=== PATIENT | female | born 1950 | race Caucasian/White ===

== ENCOUNTER 2018-04-13 09:34 | Inpatient (IN) | payer MEDICARE ==
[2018-04-13] MEDS ORDERED: Magnesium 2 GM/50 ML BAG (IN WATER) ONE (10:20)
[2018-04-13] MEDS ORDERED: Norepinephrine 8 MG/0.9% NS 250 ML ONE (10:32)
--- NOTE | 2018-04-13 10:52 | RAD ---
SINGLE VIEW OF THE CHEST: Comparison: 04-13-18 History: Pneumonia. FINDINGS: Single view of the chest shows a normal sized cardiomediastinal silhouette. A left subclavian central venous catheter is seen with its tip in the superior vena cava. Airspace opacities project over the right upper lobe consistent with pneumonia. A calcified granuloma is seen in the left lung base. IMPRESSION: 1. Status post central line placement without evidence of complication. 2. Right upper lobe pneumonia. POS: H
[2018-04-13 10:57] LABS: #Monocytes 0.6 thou/uL (0.11-0.59); %Basophils 0.3 % (0.0-1.0); %Eosinophils 0.2 % (0.0-10.0); %Lymphocytes 6.8 % (21.0-51.0); %Monocytes 3.9 % (0.0-10.0); %Neutrophils 88.8 % (42.0-75.0); ALT (SGPT) 26 U/L (8-55); AST (SGOT) 62 U/L (5-34); Albumin 2.7 g/dL (3.4-4.8); Alkaline Phosphatase 184 U/L (40-150); Anion Gap 12 mmol/L (10-20); BUN (Urea Nitrogen) 9 mg/dL (9.8-20.1); Bilirubin, Total 0.7 mg/dL (0.2-1.2); CK (CPK) 25 U/L (29-168); Calc. Creatinine Clearance 0 mL/min (70-130); Calcium 8.2 mg/dL (7.8-10.44); Carbon Dioxide 26 mmol/L (23-31); Chloride 102 mmol/L (98-107); Estimated GFR-MDRD 71; Globulin 2.4 g/dL (2.4-3.5); Glucose 164 mg/dL (80-115); Hemoglobin 11.3 g/dL (12.0-16.0); Lipase Less than 4 U/L (8-78); Mean Corpuscular HGB CONC 30.3 g/dL (32.0-36.0); Mean Corpuscular Hemoglobin 27.1 pg (27.0-31.0); Mean Corpuscular Volume 89.4 fL (78.0-98.0); Mean Platelet Volume 7.5 fL (7.4-10.4); Platelet Count 320 thou/uL (130-400); Potassium 4.6 mmol/L (3.5-5.1); Protein, Total 5.1 g/dL (6.0-8.3); Red Blood Cell (RBC) Count 4.17 mill/uL (4.20-5.40); Sodium 135 mmol/L (136-145); White Blood Cell (WBC) Count 14.7 thou/uL (4.8-10.8)
[2018-04-13] MEDS ORDERED: Amiodarone 150 MG/3 ML VIAL ONE (11:31)
[2018-04-13 12:40] LABS: Bilirubin Negative (Negative); Blood, Urine Negative (Negative); Clarity CLEAR (Clear); Glucose, Urine (Dipstick) Negative (Negative); Leukocyte Negative (Negative); Nitrite Negative (Negative); Protein, Urine (Dipstick) Negative (Neg-Trace); Specific Gravity, Urine 1.042 (1.002-1.036); Urobilinogen 0.2 mg/dL (0.2-1.0)
--- NOTE | 2018-04-13 13:12 | HP ---
[facility] call admission for [facility]. The patient visiting from [place]. HISTORY OF PRESENT ILLNESS: The patient referred to the [facility] Hospitalist Service after being evaluated in the emergency room. The patient has multiple medical problems and multiple physicians including a internet sales consultant, primary care physician, pain management doctor, credit office manager, and orthopedic surgeon. Her current history is she woke today short of breath. She was not short of breath before. She has had some chronic cough, which is not changed. She has had no fevers, sweats, chills , or chest pain. PAST MEDICAL HISTORY: Her history is pertinent for chronic back pain and coronary artery disease. She had an MD in 2006. No intervention noted. She has had peripheral arterial disease with a stent to the right groin in 2006, hypertension, chronic obstructive pulmonary disease, and dyslipidemia. MEDICATIONS: Her current home medications; 1. Metoprolol ER 50 mg p.o. b.i.d. 2. Amlodipine 5 mg a day. 3. Propafenone 225 mg in the morning. 4. Aspirin 81 mg Wednesday, Wednesday, and Wednesday. 5. Plavix 75 mg a day. 6. Crestor 20 mg a day. 7. Zoloft 50 mg a day. 8. Orencia 125 mg IM weekly. 9. Prednisone 5 mg in the morning with flares of rheumatoid arthritis. 10. MS Contin 100 mg t.i.d. 11. Oxycodone 20 mg p.o. b.i.d. 12. Lunesta 3 mg h.s. 13. Torsemide 20 mg a day. 14. Potassium chloride 20 mEq a day. 15. Albuterol HFA 2 puffs q.4 hours p.r.n. ALLERGIES: PENICILLINS, CLINDAMYCIN, ANGIOEDEMA WITH LISINOPRIL, AND METHOTREXATE. PAST SURGICAL HISTORY: Right carpal tunnel release, bilateral total knee replacement, hysterectomy, cholecystectomy, appendectomy, and 3 back surgeries in the past; 1967, 1971, and 1986. FAMILY HISTORY: Mother of coronary artery disease. Father with diabetes. SOCIAL HISTORY: Partner, Anita Crawley, who is her surrogate decision maker. Full code status. Quit smoking 11 years ago. Occasional alcohol. REVIEW OF SYSTEMS: HEAD: No recent headaches, dizziness, or fainting. EYES: No double vision, blurred vision, or flashing light. EARS, NOSE, AND THROAT: No ear pain or drainage. No nasal bleeding. No trouble swallowing. CARDIAC: No chest pain, orthopnea, or paroxysmal nocturnal dyspnea. RESPIRATIONS: Please see present illness. GENITOURINARY: No hematuria, dysuria, or nocturia. GASTROINTESTINAL: No nausea, vomiting, diarrhea, constipation, or abdominal pain. MUSCULOSKELETAL: Positive swelling in her legs below the knees and chronic joint pains. NEUROLOGIC: No strokes, seizures, or focal weakness. PSYCHIATRIC: No acute anxiety or depression. SKIN: Easy bruising. No chronic rash. HEME/LYMPH: No tender or swollen lymph nodes in the axilla, inguinal, or cervical area. PHYSICAL EXAMINATION: VITAL SIGNS: Current vital signs; blood pressure 94/57, pulse 120, respirations 18 to 24, temperature 98.9, and pulse ox 94 on 2 L. GENERAL: Alert, oriented, and cooperative. HEENT: Examination of her head, eyes, ears, nose, and throat reveals pupils are equal and round with implants. Extraocular movements are intact. Sclerae are white. Tympanic membranes are clear. Nose clear. Oral mucous membranes are wet. She is edentulous. She has dentures. CHEST: Rales observed, complete right chest. Some scant rales on the left. Breath sounds are somewhat diminished. There is some expiratory wheezing. HEART: Irregularly irregular rhythm. First and second heart sounds were variable. No murmurs or gallops. ABDOMEN: Soft. Bowel sounds are normal. There is no hepatosplenomegaly. No mass. No rebound. EXTREMITIES: Reveal no cyanosis or clubbing. She has 2+ edema in her legs. Pulses; carotid, radial, and femoral pulses intact. Pedal pulses diminished. SKIN: Warm and dry with ecchymoses on her forearms. HEME/LYMPH: No tender or swollen lymph nodes in the axilla, inguinal, or cervical area. No petechial lesions noted. NEUROLOGIC: Cranial nerves 2 through 12 are intact. Deep tendon reflexes symmetric. LABORATORY DATA: Chest x-ray reveals a right-sided pneumonia, prominently right upper lobe, reviewed by me. CT of the chest also reveals some pneumonia. No pulmonary emboli. There are apparently intra-abdominal lesions with destruction of T12, hepatic duct dilatation. Further studies recommended. EKG, atrial fibrillation with rapid ventricular response and nonspecific ST-T abnormality. Her troponins 0.590 and BNP 287. Alkaline phosphatase 184, bilirubin 0.7, AST 62, ALT 26. Sodium 135, potassium 4.6, carbon dioxide 26, BUN 9, and creatinine 0.8. Current white cell count 14.7, hemoglobin 11.3, and platelet count 220,000 with a left shift on the white cell count. There is earlier CBC that shows 17.9 white count with a lactic acid of 4.9. HOSPITAL COURSE: The patient was seen and evaluated in an outlying emergency room. Because of her atrial fibrillation, she received 5 doses of IV Lopressor. She arrived here with a blood pressure in the 75/60 range. She was started on pressors. Because of her atrial fibrillation, she has been started on amiodarone by the emergency room physician. She has been given Levaquin and vancomycin in the emergency room. ASSESSMENT: 1. Hypotension, possibly iatrogenic induced. 2. Pneumonia, right upper lobe. 3. Lactic acidosis. 4. Atrial fibrillation with rapid ventricular response. 5. Coronary artery disease. 6. Peripheral vascular disease. 7. Hypertension. 8. Chronic obstructive pulmonary disease. 9. Dyslipidemia. 10. Rheumatoid arthritis. 11. NSTEMI 12. sepsis syndrome PLAN: The patient is currently being prepared to move to ICU. She will be on pressors, IV amiodarone, IV antibiotics, and nebs. I will consult Pulmonology and Cardiology acutely. Job ID: [id number] NATE
[2018-04-13] MEDS ORDERED: Norepinephrine 8 MG/0.9% NS 250 ML IVPB SCH (13:15)
[2018-04-13] MEDS ORDERED: Sodium Chloride 0.9% 1,000 ML IV SCH (13:15)
[2018-04-13] MEDS ORDERED: Ondansetron PF 4 MG/2 ML Vial IVP PRN (13:15)
[2018-04-13] MEDS ORDERED: Zolpidem Tartrate 5 MG TAB PO PRN (13:15)
[2018-04-13] MEDS: Sodium Chloride 0.9% 1,000 ML IV SCH (14:23)
--- NOTE | 2018-04-13 14:34 | PDOC.EVN ---
Event Note - Event Note Event Note: on chronic prednisone 5mg daily. willadd stress level slou-corteff
[2018-04-13 14:59] LABS: Critical Call Chem Troponin I RESULT DECREASING; Troponin I 0.413 ng/mL (< 0.028)
[2018-04-13] MEDS ORDERED: MORPHINE SULFATE 100 MG PO SCH (15:00)
[2018-04-13] MEDS: Hydrocortisone Sod Succ/PF 100 mg/2 ml Vial IVP SCH (15:54)
[2018-04-13 15:56] LABS: Bilirubin Negative (Negative); Blood, Urine Negative (Negative); Clarity CLEAR (Clear); Glucose, Urine (Dipstick) Negative (Negative); Leukocyte Negative (Negative); Nitrite Negative (Negative); Protein, Urine (Dipstick) Negative (Neg-Trace); Specific Gravity, Urine 1.026 (1.002-1.036); Urobilinogen 0.2 mg/dL (0.2-1.0)
[2018-04-13 15:58] LABS: Pathc Cast-AUWi Flag 0.14 (0-2.49)
[2018-04-13 16:05] LABS: CKMB 2.7 ng/mL (0-6.6)
[2018-04-13 16:11] LABS: RBC/HPF None Seen HPF (0-3)
[2018-04-13 16:12] LABS: Bacteria/HPF None Seen HPF (None Seen); Hyaline Casts/LPF NONE SEEN LPF (0-3 Hyaline); Squamous Epithelial 0-3 HPF (0-3); WBC/HPF None Seen HPF (0-3)
[2018-04-13 18:05] LABS: Troponin I 0.282 ng/mL (< 0.028)
--- NOTE | 2018-04-13 18:51 | CON ---
DATE OF CONSULTATION: 04/13/2018 CARDIOLOGY CONSULTATION REASON FOR CONSULTATION: Atrial fibrillation with a rapid rate, pneumonia, coronary artery disease, hypotension. HISTORY OF PRESENT ILLNESS: Ms. Self is a 67-year-old woman visiting from [place]. She presented to the emergency room with sudden onset of shortness of breath. She previously had a chronic cough. She was not aware of having any fever, sweats, or chills. No chest pain. PAST MEDICAL HISTORY: The patient said she had a myocardial infarction in the year 2006. She said she had a heart catheterization and no intervention was done. She said she had a stent placed in the "femoral artery" or actually she says "her groin a few weeks later." She said she did not have a stent placed in the heart artery, it was in the right groin. She does not recall having leg pain. She says she sees her claim trainee regularly. She is scheduled for a stress test soon. HOME MEDICATIONS: 1. Metoprolol 50 mg twice a day. 2. Amlodipine 5 mg daily. 3. Propafenone, she takes 225 mg a day. She said, one day, she had rapid heart rate and she was instructed to take this once a day following that. 4. Aspirin 81 mg Wednesday, Wednesday, and Wednesday. 5. Plavix 75 mg a day. 6. Crestor 20 mg a day. 7. Zoloft. 8. Prednisone 5 mg in the morning when she has rheumatoid arthritis. 9. MS Contin. 10. Torsemide. 11. Potassium. 12. Albuterol. ALLERGIES: PENICILLIN, CLINDAMYCIN, ANGIOEDEMA WITH LISINOPRIL, AND METHOTREXATE. PAST SURGICAL HISTORY: Carpal tunnel release, bilateral total knee replacement, hysterectomy, cholecystectomy, appendectomy, and three back surgeries. FAMILY HISTORY: Mother of coronary artery disease. SOCIAL HISTORY: Quit smoking 11 years ago. REVIEW OF SYSTEMS: CONSTITUTIONAL: Prior to the above listed, she was active. VISION: No changes. HEARING: No changes. PULMONARY: Shortness of breath, acute as mentioned above. GASTROINTESTINAL: No nausea, vomiting, or diarrhea. SKIN: No rashes. NEUROLOGIC: No unilateral weakness or numbness. PSYCHIATRIC: No unusual depression or anxiety. HEMATOLOGIC: No unusual bruising. GENITOURINARY: No burning with urination. MUSCULOSKELETAL: No unusual joint pains. PHYSICAL EXAMINATION: GENERAL: This is an elderly woman, resting comfortably. VITAL SIGNS: Her blood pressure is approximately 110 systolic now, pulse is variable anywhere between 110 to 115 up to 120 at times, looks like atrial fibrillation. EYES: Sclerae nonicteric. MOUTH: Mucous membranes moist. NECK: Supple. No lymphadenopathy. LUNGS: Clear. CARDIAC: Irregularly irregular. No murmur, rub, or gallop. ABDOMEN: Soft and nontender. EXTREMITIES: No clubbing or cyanosis. There is no edema. Peripheral pulses are diminished. SKIN: Warm and dry. PERTINENT LABORATORY: The EKG reveals sinus rhythm, looks like an old anterior infarct. No acute ST or T changes. Pertinent troponin 0.59. BNP 287. Sodium is 135, potassium 4.6, creatinine is 0.8. Hemoglobin is 11.3. Chest x-ray shows central line in place with a right upper lobe infiltrate. ASSESSMENT: 1. Atrial fibrillation with a rapid rate, probably recent onset. 2. Pneumonia. 3. Coronary artery disease with previous myocardial infarction. 4. Increased troponin, [id number] myocardial infarction, looks like demand ischemia. 5. Hypotension. PLAN: 1. She is on Levophed for blood pressure. She is on amiodarone for heart rate control. 2. Antibiotics being given. 3. She is on aspirin. 4. We will add enoxaparin. 5. Echocardiogram to be ordered. We will be glad to follow with you. Job ID: [id number]
[2018-04-13 19:03] LABS: CKMB 2.9 ng/mL (0-6.6)
[2018-04-13 20:26] LABS: Actual Bicarbonate (HCO3a) 17.2 mEq/L (22-28); Base Excess (BEa) -9.1 mEq/L (-2.0 to +3.0); CO2 Tension 38.6 mmHg (35.0-45.0); Calcium, Ionized 1.15 mmol/L (1.12-1.30); Carboxyhemoglobin (COHb) 1.2 gm% (0.0-3.0); Hemoglobin (Hb) 13.6 g/dL (12.0-16.0); O2 Tension (PaO2) 111.7 mmHg (> 80.0); pH, Arterial 7.27 (7.35-7.45)
[2018-04-13 20:27] LABS: Puncture Site RRADIAL
[2018-04-13] MEDS ORDERED: Sodium Bicarb 50 MEQ/50 ML Abboject 8.4% SYRINGE IVP SCH (20:45)
[2018-04-13] MEDS ORDERED: Sodium Bicarbonate 150 MEQ in Dextrose 5% in Water 1,000 ML IVP SCH (20:45)
[2018-04-13] MEDS ORDERED: Non-Formulary Item 1 EACH (Eszopiclone [Lunesta] 3 MG) PO SCH (21:00)
[2018-04-13] MEDS ORDERED: Zolpidem Tartrate 5 MG TAB PO SCH (21:00)
[2018-04-13] MEDS: Morphine 4 MG/ML VIAL SLOW IVP PRN (21:14)
[2018-04-13] MEDS: Enoxaparin Sodium 80 MG/0.8 ML SYRINGE SC SCH (21:55)
[2018-04-13] MEDS: guaiFENesin ER 600 MG TAB PO SCH (21:58)
[2018-04-13] MEDS: Morphine ER 30 MG TAB PO SCH (22:04)
[2018-04-13] MEDS: Amiodarone 450 MG, Admixture Fee 1 EACH in Dextrose 5% in Water 250 ML IVPB SCH (22:06)
--- NOTE | 2018-04-14 00:40 | CON ---
DATE OF CONSULTATION: 04/13/2018 HISTORY OF PRESENT ILLNESS: Ms. Self is a 67-year-old female, who does not live in this area. She tells me she has had 3 back operations in the past, for which she takes long-acting morphine. She has been on as much MS Contin as 100 mg 3 times a day. She actually has slightly slurred speech. She had rapid atrial fibrillation when presenting to the emergency department in [place] and received Lopressor and dropped her blood pressure. She actually has a CT pulmonary angiogram, which shows a fairly impressive alveolar infiltrate in her right lung consistent with a pneumonia. She is subsequently transferred here and is now in the ICU. She says she feels fine and has only been feeling poorly for a day. PAST MEDICAL HISTORY: Remarkable for, 1. Coronary artery disease with myocardial infarction 11 years ago. 2. Peripheral vascular disease with a right lower extremity stent 11 years ago. 3. History of hypertension. 4. Reported history of COPD, only on albuterol. 5. History of lipid disorder. 6. Reported history of rheumatoid arthritis. 7. History of carpal tunnel surgery on the right. 8. History of bilateral total knee replacements. 9. Status post hysterectomy. 10. History of cholecystectomy. 11. History of an appendectomy. FAMILY HISTORY: Positive for vascular disease and diabetes. SOCIAL HISTORY: She is a former smoker, rarely drinks. REVIEW OF SYSTEMS: Ten-point review of systems completed, is otherwise negative. PHYSICAL EXAMINATION: VITAL SIGNS: Blood pressure is 107/77, heart rate is 105, respiratory rate is 22, and oximetry is 93%. GENERAL: Surprisingly, she is in no distress. I expected some respiratory distress with a history of COPD in a fairly ominous looking chest CT, but she is actually totally comfortable. She did have a very slight slurring to her speech and a little latency response to questions. HEAD: Unremarkable. She has no lymphadenopathy. NECK: Unremarkable. LUNGS: Remarkable for crackles at the right base. HEART: Regular rhythm. Her rate has slowed down significantly. She does appear to be in atrial fibrillation. ABDOMEN: Soft and nontender. EXTREMITIES: Without clubbing, cyanosis or edema. LABORATORY DATA: White count 14.7, hemoglobin 11.3, and platelets 320. Electrolytes; sodium 135, potassium 4.6, chloride 102, bicarb 26, BUN 9, creatinine 0.8, alkaline phosphatase 184, AST 62, ALT is 26, and albumin is 2.7. Urinalysis is surprisingly unremarkable. She has no sediment, no proteinuria. IMPRESSION AND PLAN: 1. Pneumonia, community-acquired. 2. Significant opioid use. The dose was cut back to 60 mg t.i.d. and I have cut it further back to 60 mg b.i.d. for now. 3. We can always give her IV morphine for breakthrough pain. 4. Agreed with antimicrobial therapy. She will receive nebulized therapy. We will be happy to follow with the other physicians. This is a 70-minute consult, with greater than 50% of time was spent on the unit coordinating care. Job ID: [id number] MTDD
[2018-04-14] MEDS: Sodium Chloride 0.9% 1,000 ML IV SCH (03:11)
[2018-04-14] MEDS: Hydrocortisone Sod Succ/PF 100 mg/2 ml Vial IVP SCH ×2 (03:30→15:07)
[2018-04-14] MEDS: Morphine 4 MG/ML VIAL SLOW IVP PRN (04:10)
[2018-04-14 04:20] LABS: #Monocytes 0.7 thou/uL (0.11-0.59); %Eosinophils 0.1 % (0.0-10.0); %Lymphocytes 15.7 % (21.0-51.0); %Monocytes 5.4 % (0.0-10.0); %Neutrophils 78.8 % (42.0-75.0); Mean Corpuscular HGB CONC 31.8 g/dL (32.0-36.0); Mean Corpuscular Hemoglobin 28.2 pg (27.0-31.0); Mean Corpuscular Volume 88.7 fL (78.0-98.0); Mean Platelet Volume 7.6 fL (7.4-10.4); Platelet Count 339 thou/uL (130-400); RBC Distribution Width 16.1 % (11.5-14.5); Red Blood Cell (RBC) Count 4.26 mill/uL (4.20-5.40); White Blood Cell (WBC) Count 12.7 thou/uL (4.8-10.8)
[2018-04-14 04:43] LABS: Anion Gap 11 mmol/L (10-20); BUN (Urea Nitrogen) 9 mg/dL (9.8-20.1); Calc. Creatinine Clearance 97 mL/min (70-130); Calcium 8.8 mg/dL (7.8-10.44); Carbon Dioxide 32 mmol/L (23-31); Chloride 103 mmol/L (98-107); Estimated GFR-MDRD 87; Glucose 148 mg/dL (80-115); Potassium 3.5 mmol/L (3.5-5.1); Sodium 142 mmol/L (136-145)
[2018-04-14 05:02] LABS: Actual Bicarbonate (HCO3a) 25.9 mEq/L (22-28); Base Excess (BEa) 1.8 mEq/L (-2.0 to +3.0); CO2 Tension 38.5 mmHg (35.0-45.0); Calcium, Ionized 1.09 mmol/L (1.12-1.30); Carboxyhemoglobin (COHb) 1.5 gm% (0.0-3.0); Hemoglobin (Hb) 13.7 g/dL (12.0-16.0); O2 Tension (PaO2) 64.4 mmHg (> 80.0); Potassium - ABG Lab 3.89 mmol/L (3.70-5.30); pH, Arterial 7.45 (7.35-7.45)
[2018-04-14 05:13] LABS: Puncture Site LRADIAL
[2018-04-14 05:14] LABS: ALV-art Gradient 144.155 (0-20)
[2018-04-14] MEDS: Morphine 4 MG/ML VIAL SLOW IVP SCH ×2 (05:37→07:47)
[2018-04-14] MEDS ORDERED: Digoxin 0.5 MG/2 ML AMP SLOW IVP SCH (07:45)
--- NOTE | 2018-04-14 07:47 | PDOC.PN ---
- Subjective Encounter Start Date: 04/14/18 Encounter Start Time: 07:46 Subjective: air hunger, agitation, on BIPAP - Objective Resuscitation Status - Order Detail: 04/13/18 11:49 Resuscitation Status Routine Resuscitation Status: FULL: Full Resuscitation MAR Reviewed: Yes Vital Signs & Weight: Vital Signs (12 hours) Temp Pulse Resp Pulse Ox 04/14/18 07:00 98.1 F 04/14/18 06:43 139 H 04/14/18 06:42 143 H 31 H 98 04/14/18 04:13 127 H 30 H 95 04/14/18 04:00 97.8 F 04/14/18 02:14 115 H 26 H 96 04/14/18 00:00 98.4 F 93 L 04/13/18 22:30 113 H 04/13/18 22:27 126 H 30 H 95 04/13/18 20:24 123 H 04/13/18 20:00 98.1 F Weight Admit Weight 171 lb 4.787 oz Weight 172 lb 13.478 oz Most Recent Monitor Data Heart Rate from ECG 135 NIBP 115/94 NIBP BP-Mean 101 Respiration from ECG 30 SpO2 95 I&O: 04/13/18 04/14/18 04/15/18 06:59 06:59 06:59 Intake Total 3102 Output Total 1805 50 Balance 1297 -50 Result Diagrams: 04/14/18 03:20 04/14/18 03:20 Phys Exam - Physical Examination Neck: no JVD rales, rhonchi R>> L Cardiovascular: irregular tachy Gastrointestinal: soft, positive bowel sounds Musculoskeletal: no edema Dx/Plan (1) Acute respiratory failure with hypoxia Code(s): J96.01 - ACUTE RESPIRATORY FAILURE WITH HYPOXIA Status: Acute (2) PNA (pneumonia) Code(s): J18.9 - PNEUMONIA, UNSPECIFIED ORGANISM Status: Acute Qualifiers: Pneumonia type: due to unspecified organism Laterality: right Lung location: upper lobe of lung Qualified Code(s): J18.1 - Lobar pneumonia, unspecified organism (3) NSTEMI (non-ST elevated myocardial infarction) Code(s): I21.4 - NON-ST ELEVATION (NSTEMI) MYOCARDIAL INFARCTION Status: Acute (4) Cardiomyopathy Code(s): I42.9 - CARDIOMYOPATHY, UNSPECIFIED Status: Acute Qualifiers: Cardiomyopathy type: ischemic Qualified Code(s): I25.5 - Ischemic cardiomyopathy (5) CAD (coronary artery disease) Code(s): I25.10 - ATHSCL HEART DISEASE OF [place] CORONARY ARTERY W/O ANG PCTRS Status: Acute Qualifiers: Coronary Disease-Associated Artery/Lesion type: [place] artery [place] vs. transplanted heart: [place]ig heart Associated angina: without angina Qualified Code(s): I25.10 - Atherosclerotic heart disease of [place] coronary artery without angina pectoris (6) Lactic acidosis Code(s): E87.2 - ACIDOSIS Status: Acute (7) HTN (hypertension) Code(s): I10 - ESSENTIAL (PRIMARY) HYPERTENSION Status: Chronic Qualifiers: Hypertension type: essential hypertension Qualified Code(s): I10 - Essential (primary) hypertension (8) Atrial fibrillation with rapid ventricular response Code(s): I48.91 - UNSPECIFIED ATRIAL FIBRILLATION Status: Acute (9) Opioid dependence Code(s): F11.20 - OPIOID DEPENDENCE, UNCOMPLICATED Status: Acute Qualifiers: Substance use status: in withdrawal Qualified Code(s): F11.23 - Opioid dependence with withdrawal - Plan AF on amiodarone-add digoxin -: PNA- in iv antibx-C&S pending -: TRIAL [place] will need DEMI eventually -: resp failure on BIPAP, need FU cxr -: discussed with laborer construction or leak gang * .
[2018-04-14] MEDS ORDERED: Morphine CADD 100 ML IVPB SCH (08:00)
[2018-04-14] MEDS ORDERED: Furosemide 20 MG/2 ML VIAL SLOW IVP SCH (09:00)
--- NOTE | 2018-04-14 09:08 | RAD ---
PORTABLE AP CHEST RADIOGRAPH: Date: 04-14-18 History: Pneumonia. Decreased EF. Sepsis. Comparison: 04-13-18 FINDINGS: Patient is rotated to the right. Left subclavian central venous catheter remains in place. Interstiti al and alveolar opacities are again seen projecting over the left mid and left upper lung zone with i nterval development of patchy opacities now present at the left lung base. There is also suggestion o f small bilateral pleural effusions on the current exam. Cardiac silhouette is magnified by projectio n. No other interval change. IMPRESSION: Findings worrisome for multifocal pneumonia within the right mid and upper lung zone and at the left lung base with interval development of small bilateral pleural effusions. Follow up to resolution is recommended. POS: AMELIA
[2018-04-14] MEDS: Rosuvastatin 20 MG TAB PO SCH (10:30)
[2018-04-14] MEDS: guaiFENesin ER 600 MG TAB PO SCH ×2 (10:30→20:39)
[2018-04-14] MEDS: Enoxaparin Sodium 80 MG/0.8 ML SYRINGE SC SCH ×2 (10:31→20:39)
[2018-04-14] MEDS: Amiodarone 450 MG, Admixture Fee 1 EACH in Dextrose 5% in Water 250 ML IVPB SCH ×2 (11:26→21:39)
[2018-04-14] MEDS: Sodium Chloride 0.45% 1,000 ML IV SCH (11:26)
--- NOTE | 2018-04-14 11:46 | PRG ---
DATE OF SERVICE: 04/14/2018 SUBJECTIVE: [place] Self had atrial fibrillation, rate increased overnight. She has developed some pulmonary edema on exam and on radiograph this morning. She now has decent blood pressure. We may be able to gently diurese her. 20 of Lasix has been ordered. She needs a little better rate control. 0.5 of digoxin is given in addition to amiodarone and Cardiology will be seeing her as well. OBJECTIVE: LUNGS: Remarkable for crackles. She appears reasonably comfortable on BiPAP. HEART: Irregularly irregular. ABDOMEN: Soft. EXTREMITIES: Without asymmetry. Her ejection fraction on echo was noted to be decreased. I will start her on a morphine drip since I believe she is having some withdrawal when her long-acting morphine wears off. A low-dose drip may significantly decrease her morphine use and avoid withdrawal as well. White count is 12.7, hemoglobin is 12.0, and platelets 339. document design specialist blood gas; pH 7.45, pCO2 of 38, and pO2 of 64. She has no signs of muscle fatigue on exam. Electrolytes were unremarkable. IMPRESSION: 1. Pneumonia, community acquired. 2. Significant morphine use chronically. 3. Coronary artery disease by history or significant others provided. 4. Systolic cardiomyopathy with mild pulmonary edema. PLAN: Continue supportive care in critical care unit. Hopefully by the end of the day, we will be able to remove BiPAP. Critical care time 40 minutes. Job ID: [id number] MTDD
[2018-04-14] MEDS ORDERED: Furosemide 40 MG/4 ML VIAL SLOW IVP SCH (13:15)
[2018-04-14] MEDS ORDERED: Metoprolol Tartrate 5 MG/5 ML VIAL IVP SCH ×2 (13:30→18:30)
[2018-04-14] MEDS ORDERED: Potassium Chloride 40 MEQ in Premix Bag 1 BAG IVPB SCH (13:30)
--- NOTE | 2018-04-14 14:07 | PRG ---
DATE OF SERVICE: 04/14/2018 SUBJECTIVE: Ms. Self looks more short of breath today. She is having more trouble breathing. She is on CPAP now. OBJECTIVE: VITAL SIGNS: Her blood pressure is 136/96. Pulse is not controlled with atrial fibrillation with a rate of 120 to 130. LUNGS: She is breathing somewhat shallow. CARDIAC: Tachycardic and irregular. ABDOMEN: Soft and nontender. EXTREMITIES: There is mild edema. LABORATORY DATA: Echocardiogram showed severely depressed left ventricular function, which is like an old anterior infarction. The ejection fraction is 20% to 25%. ASSESSMENT: 1. Congestive heart failure, systolic, acute on chronic, worsened. 2. Atrial fibrillation, rate is not controlled. PLAN: 1. Intravenous furosemide will be given. 2. Continue intravenous amiodarone. 3. Digoxin had been given intravenously. 4. Give one dose of metoprolol intravenously. 5. If necessary, could do cardioversion, although in this situation, frequently, the patient will go back into the fibrillation. Job ID: [id number]
[2018-04-14] MEDS ORDERED: Magnesium Sulfate 3 GM in Sodium Chloride 0.9% 100 ML IVPB SCH (16:45)
[2018-04-14] MEDS ORDERED: Cyclobenzaprine 10 MG TAB PO PRN (17:33)
[2018-04-14] MEDS: Diltiazem 125 MG in Sodium Chloride 0.9% 100 ML IVPB SCH (19:40)
[2018-04-14] MEDS: Morphine ER 30 MG TAB PO SCH (20:15)
[2018-04-15] MEDS: Diltiazem 125 MG in Sodium Chloride 0.9% 100 ML IVPB SCH ×3 (00:14→18:51)
[2018-04-15] MEDS: Hydrocortisone Sod Succ/PF 100 mg/2 ml Vial IVP SCH ×2 (02:16→15:21)
[2018-04-15] MEDS: Sodium Chloride 0.45% 1,000 ML IV SCH (03:17)
[2018-04-15 05:56] LABS: #Lymphocytes 0.7 thou/uL (1.20-3.40); #Monocytes 0.6 thou/uL (0.11-0.59); #Neutrophils 10.4 thou/uL (1.40-6.50); %Monocytes 4.9 % (0.0-10.0); %Neutrophils 89.1 % (42.0-75.0); Hemoglobin 12.2 g/dL (12.0-16.0); Mean Corpuscular HGB CONC 31.6 g/dL (32.0-36.0); Mean Corpuscular Hemoglobin 27.8 pg (27.0-31.0); Mean Corpuscular Volume 87.8 fL (78.0-98.0); Mean Platelet Volume 7.5 fL (7.4-10.4); Platelet Count 338 thou/uL (130-400); RBC Distribution Width 16.3 % (11.5-14.5); Red Blood Cell (RBC) Count 4.38 mill/uL (4.20-5.40); White Blood Cell (WBC) Count 11.7 thou/uL (4.8-10.8)
[2018-04-15 06:16] LABS: Anion Gap 14 mmol/L (10-20); BUN (Urea Nitrogen) 8 mg/dL (9.8-20.1); Calc. Creatinine Clearance 104 mL/min (70-130); Calcium 8.6 mg/dL (7.8-10.44); Carbon Dioxide 28 mmol/L (23-31); Chloride 98 mmol/L (98-107); Estimated GFR-MDRD Greater than 90; Glucose 157 mg/dL (80-115); Potassium 3.1 mmol/L (3.5-5.1); Sodium 137 mmol/L (136-145)
[2018-04-15] MEDS: Rosuvastatin 20 MG TAB PO SCH (08:57)
[2018-04-15] MEDS: Enoxaparin Sodium 80 MG/0.8 ML SYRINGE SC SCH ×2 (08:57→21:36)
[2018-04-15] MEDS: guaiFENesin ER 600 MG TAB PO SCH ×2 (08:57→22:22)
[2018-04-15] MEDS ORDERED: Furosemide 40 MG/4 ML VIAL SLOW IVP SCH (09:00)
--- NOTE | 2018-04-15 11:23 | PRG ---
DATE OF SERVICE: 04/14/2018 ADDENDUM: Ms. Self remains extremely tachycardic despite intravenous amiodarone. She also received some intravenous metoprolol. Her heart rate as fast as 140, sometimes as low as 114. We will add intravenous diltiazem. She has also gotten a dose of digoxin 0.5 mg IV. I am reluctant to cardiovert at this point. In this situation, there is a relatively high chance to go back into fibrillation. Continue to treat her with medicines. If necessary, cardioversion can be done. I will be off for next few days. My partners will be covering. Job ID: [id number]
[2018-04-15] MEDS ORDERED: Potassium Chloride 40 MEQ in Premix Bag 1 BAG IVPB SCH (12:00)
[2018-04-15] MEDS ORDERED: Lorazepam 2 MG/ML VIAL ONE ×2 (13:27→15:46)
--- NOTE | 2018-04-15 13:40 | PRG ---
DATE OF SERVICE: 04/15/2018 SUBJECTIVE: Ms. Self says she feels much better today. She looks about the same. She still has atrial fibrillation with a rate this morning about 120, this afternoon it is down to 111. OBJECTIVE: VITAL SIGNS: Her blood pressure is 112/75, she is afebrile, and respiratory rates in the 20s. LUNGS: Remarkable for crackles at the bases. HEART: Regular rhythm. ABDOMEN: Soft. LABORATORY DATA: White count 11.7, hemoglobin 12.2, and platelets 338. Sodium 137, potassium 3.1, chloride 98, bicarbonate 28, BUN 8, and creatinine 0.63. IMPRESSION: 1. Rapid atrial fibrillation. 2. Pneumonia. 3. Excessive morphine use. 4. Pulmonary edema related to rapid atrial fibrillation and a systolic cardiomyopathy. 5. History of coronary artery disease. We will try switching her from BiPAP today since she no longer has signs or symptoms of muscle fatigue to high-flow cannula and see how she does. She can continue to sleep with BiPAP. We will continue to follow. She needs to remain in critical care unit. CRITICAL CARE TIME: 30 minutes. Job ID: [id number]
[2018-04-15] MEDS: Amiodarone 450 MG, Admixture Fee 1 EACH in Dextrose 5% in Water 250 ML IVPB SCH (13:44)
--- NOTE | 2018-04-15 14:12 | PDOC.PN ---
- Subjective Encounter Start Date: 04/15/18 Encounter Start Time: 10:50 Tolerating the Bipap. Did not tolerate the attempt to switch to high flow nasal cannula. - Objective Resuscitation Status - Order Detail: 04/13/18 11:49 Resuscitation Status Routine Resuscitation Status: FULL: Full Resuscitation Vital Signs & Weight: Vital Signs (12 hours) Temp Pulse Resp Pulse Ox 04/15/18 12:00 98.1 F 04/15/18 10:25 122 H 04/15/18 10:22 120 H 26 H 91 L 04/15/18 08:00 98.3 F 04/15/18 07:56 109 H 04/15/18 07:55 130 H 27 H 90 L 04/15/18 03:00 98.5 F 04/15/18 02:19 115 H Weight Admit Weight 171 lb 4.787 oz Weight 172 lb 13.478 oz Most Recent Monitor Data Heart Rate from ECG 109 NIBP 123/71 NIBP BP-Mean 88 Respiration from ECG 30 SpO2 91 I&O: 04/14/18 04/15/18 04/16/18 06:59 06:59 06:59 Intake Total 3102 2497.0 240 Output Total 1805 3810 780 Balance 1297 -1313.0 -540 Result Diagrams: 04/15/18 05:28 04/15/18 05:28 Phys Exam - Physical Examination Constitutional: NAD On BiPap. Tachypneic. Diminished Breath sounds throughout. Scattered rales. Cardiovascular: RRR, no significant murmur Tachy. Gastrointestinal: soft, non-tender, no distention Musculoskeletal: no edema Psychiatric: normal affect Dx/Plan (1) Acute respiratory failure with hypoxia Code(s): J96.01 - ACUTE RESPIRATORY FAILURE WITH HYPOXIA Status: Acute Comment: Followed by [facility]. Did not tolerate the trial of high flow NC. Continue Bipap. (2) Atrial fibrillation with rapid ventricular response Code(s): I48.91 - UNSPECIFIED ATRIAL FIBRILLATION Status: Acute Comment: Still tachycardic with Amio, dig and cardizem gtt. Cards following. (3) CAD (coronary artery disease) Code(s): I25.10 - ATHSCL HEART DISEASE OF [place] CORONARY ARTERY W/O ANG PCTRS Status: Acute Qualifiers: Coronary Disease-Associated Artery/Lesion type: [place] artery [place] vs. transplanted heart: [place] heart Associated angina: without angina Qualified Code(s): I25.10 - Atherosclerotic heart disease of [place] coronary artery without angina pectoris (4) Cardiomyopathy Code(s): I42.9 - CARDIOMYOPATHY, UNSPECIFIED Status: Acute Qualifiers: Cardiomyopathy type: ischemic Qualified Code(s): I25.5 - Ischemic cardiomyopathy Comment: EF 20-25%. Appears ischemic (5) NSTEMI (non-ST elevated myocardial infarction) Code(s): I21.4 - NON-ST ELEVATION (NSTEMI) MYOCARDIAL INFARCTION Status: Acute Comment: Type II with demand ischemia. (6) Opioid dependence Code(s): F11.20 - OPIOID DEPENDENCE, UNCOMPLICATED Status: Acute Qualifiers: Substance use status: in withdrawal Qualified Code(s): F11.23 - Opioid dependence with withdrawal Comment: Dose reduced in hospital. Still on a healthy dose. (7) PNA (pneumonia) Code(s): J18.9 - PNEUMONIA, UNSPECIFIED ORGANISM Status: Acute Qualifiers: Pneumonia type: due to unspecified organism Laterality: right Lung location: upper lobe of lung Qualified Code(s): J18.1 - Lobar pneumonia, unspecified organism Comment: Levaquin. Adding Vanc for UTI. Should add some additional coverage as well. (8) UTI (urinary tract infection) Status: Acute Comment: Presumptive Enterococcus. Add Vanc and follow up sensitivities. - Plan * Above.
[2018-04-15] MEDS ORDERED: Vancomycin HCl 1.25 GM in Sodium Chloride 0.9% 250 ML 250 ML IVPB SCH (15:00)
[2018-04-15] MEDS ORDERED: Lorazepam 2 MG/ML VIAL SLOW IVP PRN ×2 (15:05→16:55)
[2018-04-15] MEDS ORDERED: Propofol 1,000 MG/100 ML VIAL IV ONE (15:45)
[2018-04-15] MEDS ORDERED: Midazolam HCl 2 mg/2 ml Vial ONE (15:46)
[2018-04-15] MEDS ORDERED: Fentanyl BOLUS 250 ML IVPB PRN (16:49)
[2018-04-15] MEDS ORDERED: Propofol BOLUS 1,000 MG/100 ML VIAL IV PRN (16:49)
[2018-04-15] MEDS ORDERED: DISCONTINUE PREVIOUS NARCOTIC PAIN MEDICATIONS AND BENZODIAZEPINES FS SCH (16:49)
[2018-04-15] MEDS ORDERED: Propofol 1,000 MG/100 ML VIAL IV PRN (16:49)
[2018-04-15] MEDS ORDERED: Morphine 2 MG/ML SYRINGE SLOW IVP PRN (16:49)
[2018-04-15] MEDS ORDERED: Magnesium Sulfate 4 GM in Sodium Chloride 0.9% 250 ML 250 ML IVPB SCH (17:00)
--- NOTE | 2018-04-15 17:39 | RAD ---
FRONTAL VIEW CHEST 04/15/18 COMPARISON: PREVIOUS DAY. INDICATION: Ventilated patient, pneumonia followup. FINDINGS: There is progressive bilateral pulmonary parenchymal opacity, multifocal. Interval placement of an en dotracheal tube with tip just elbow the thoracic inlet level. There is a left subclavian venous marci ter again seen. Bilateral pleural fluid is present at each inferior hemithorax. Cardiac silhouette an d pulmonary vasculature remain enlarged. IMPRESSION: Bilateral pulmonary parenchymal opacities may be on the basis of progressive edema and/or pneumonia. Interval intubation. Recommend continued followup. POS: DIYA
[2018-04-15] MEDS: Lorazepam 2 MG/ML VIAL SLOW IVP PRN ×4 (17:47→23:17)
[2018-04-15] MEDS: fentaNYL Citrate/PF 2,000 MCG in Sodium Chloride 0.9% 60 ML IV SCH (17:54)
[2018-04-15] MEDS ORDERED: Norepinephrine 8 MG/0.9% NS 250 ML IVPB PRN (19:45)
[2018-04-16] MEDS: Hydrocortisone Sod Succ/PF 100 mg/2 ml Vial IVP SCH ×2 (03:00→15:36)
[2018-04-16] MEDS: Lorazepam 2 MG/ML VIAL SLOW IVP PRN ×2 (03:12→07:32)
[2018-04-16 05:07] LABS: #Monocytes 0.5 thou/uL (0.11-0.59); #Neutrophils 7.2 thou/uL (1.40-6.50); %Eosinophils 0.3 % (0.0-10.0); %Lymphocytes 11.1 % (21.0-51.0); %Monocytes 5.7 % (0.0-10.0); Hemoglobin 10.9 g/dL (12.0-16.0); Mean Corpuscular HGB CONC 32.3 g/dL (32.0-36.0); Mean Corpuscular Hemoglobin 28.2 pg (27.0-31.0); Mean Corpuscular Volume 87.5 fL (78.0-98.0); Platelet Count 299 thou/uL (130-400); RBC Distribution Width 16.1 % (11.5-14.5); Red Blood Cell (RBC) Count 3.85 mill/uL (4.20-5.40); White Blood Cell (WBC) Count 8.7 thou/uL (4.8-10.8)
[2018-04-16 05:35] LABS: Phosphorus 1.8 mg/dL (2.3-4.7)
[2018-04-16 05:44] LABS: Anion Gap 15 mmol/L (10-20); BUN (Urea Nitrogen) 16 mg/dL (9.8-20.1); Calc. Creatinine Clearance 80 mL/min (70-130); Calcium 8.2 mg/dL (7.8-10.44); Carbon Dioxide 26 mmol/L (23-31); Chloride 99 mmol/L (98-107); Estimated GFR-MDRD 69; Glucose 144 mg/dL (80-115); Magnesium 2.3 mg/dL (1.6-2.6); Potassium 3.6 mmol/L (3.5-5.1); Sodium 136 mmol/L (136-145)
[2018-04-16] MEDS: Furosemide 40 MG/4 ML VIAL SLOW IVP SCH ×2 (05:48→14:23)
[2018-04-16] MEDS: Amiodarone 450 MG, Admixture Fee 1 EACH in Dextrose 5% in Water 250 ML IVPB SCH ×2 (05:48→22:43)
[2018-04-16] MEDS: Enoxaparin Sodium 80 MG/0.8 ML SYRINGE SC SCH ×2 (08:37→20:57)
[2018-04-16] MEDS: Rosuvastatin 20 MG TAB PO SCH (08:37)
[2018-04-16] MEDS: guaiFENesin ER 600 MG TAB PO SCH ×2 (08:37→20:58)
--- NOTE | 2018-04-16 09:50 | OP ---
DATE OF PROCEDURE: 04/16/2018 SERVICE: Pulmonary Medicine PROCEDURE PERFORMED: Emergent endotracheal intubation. CONSENT: Procedure was performed emergently secondary to clinical deterioration and respiratory failure. STAFF PHYSICIAN: Telly Harman MD MEDICATIONS USED: 1. Versed 2 mg IV push. 2. Etomidate 40 mg IV push. PREPROCEDURE DIAGNOSIS: Acute hypoxic respiratory failure. POSTPROCEDURE DIAGNOSIS: Acute hypoxic respiratory failure. DESCRIPTION OF PROCEDURE: Vital signs monitoring was accomplished by noninvasive hemodynamic monitoring, pulse oximetry, and telemetry. In the supine position, the patient was preoxygenated with bag-valve mask ventilation to maintain with saturations of 93%. Following induction anesthesia, a Glidescope was inserted through the mouth, offering clear identification of the posterior oropharynx and laryngeal structures with a grade 1 view. An endotracheal tube was visualized passing through the vocal cords. Placement was confirmed by condensation in endotracheal tube, colorimetric capnography, and bi-axillary chest auscultation. The endotracheal tube was secured at 23 cm, measured at the teeth. The patient was placed on mechanical ventilation with good return of volumes. Postprocedure x-ray revealed appropriate location of the endotracheal tube within the trachea. ESTIMATED BLOOD LOSS: None. COMPLICATIONS: None. Job ID: [id number]
--- NOTE | 2018-04-16 11:58 | EKG ---
Test Reason : TACHY Blood Pressure : / mmHG Vent. Rate : 129 BPM Atrial Rate : 242 BPM P-R Int : 000 ms QRS Dur : 098 ms QT Int : 274 ms P-R-T Axes : 000 125 146 degrees QTc Int : 401 ms Atrial flutter with variable A-V block Right axis deviation Low voltage QRS Cannot rule out Anterior infarct , age undetermined Abnormal ECG Confirmed by CHAIM LOYA MD ([id number]), food expeditor PEYTON MALLORY ([id number]) on 04/16/2018 11:57:38 AM Referred By: SHALINI Confirmed By:CHAIM LOYA MD
--- NOTE | 2018-04-16 13:42 | PDOC.PN ---
- Subjective Encounter Start Date: 04/16/18 Encounter Start Time: 11:50 Intubated and sedated. - Objective Resuscitation Status - Order Detail: 04/13/18 11:49 Resuscitation Status Routine Resuscitation Status: FULL: Full Resuscitation Vital Signs & Weight: Vital Signs (12 hours) Temp Pulse Resp BP Pulse Ox 04/16/18 10:18 106 H 92/62 04/16/18 10:17 100 21 H 97 04/16/18 10:00 21 H 04/16/18 08:00 21 H 04/16/18 07:05 21 H 97 04/16/18 07:00 99.7 F H 04/16/18 06:23 102 H 109/79 04/16/18 06:21 97 21 H 99 04/16/18 06:00 21 H 04/16/18 04:00 21 H 100 04/16/18 03:00 100.2 F H 04/16/18 02:17 89 101/62 04/16/18 02:00 21 H Weight Admit Weight 171 lb 4.787 oz Weight 175 lb 14.862 oz Most Recent Monitor Data Heart Rate from ECG 102 NIBP 101/73 NIBP BP-Mean 82 Respiration from ECG 21 SpO2 97 I&O: 04/15/18 04/16/18 04/17/18 06:59 06:59 06:59 Intake Total 2497.0 2005.9 Output Total 3810 1083 470 Balance -1313.0 922.9 -470 Result Diagrams: 04/16/18 04:30 04/16/18 04:30 Phys Exam - Physical Examination Constitutional: NAD Intubated and sedated Respiratory: no wheezing Scattered rales, R>L Cardiovascular: RRR, no significant murmur Irreg, tachy Gastrointestinal: soft, no distention, positive bowel sounds Musculoskeletal: no edema Skin: normal turgor Dx/Plan (1) Acute respiratory failure with hypoxia Code(s): J96.01 - ACUTE RESPIRATORY FAILURE WITH HYPOXIA Status: Acute Comment: Followed by [facility]. Intubated yesterday. Weaned O2 from 70 to 30% (2) Acute systolic heart failure Code(s): I50.21 - ACUTE SYSTOLIC (CONGESTIVE) HEART FAILURE Status: Acute Comment: Severe ischemic cardiomyopathy of LV with EF 20-25%. Moderate to severe MR. Worsening pulmonary edema. Partner reports she had been experiencing some symptoms of CHF or months prior to admission. Diuresis, rate control. (3) Atrial fibrillation with rapid ventricular response Code(s): I48.91 - UNSPECIFIED ATRIAL FIBRILLATION Status: Acute Comment: Still tachycardic with Amio, dig and cardizem gtt. Cards following. SBP 90's limits ability to push cardizem. (4) CAD (coronary artery disease) Code(s): I25.10 - ATHSCL HEART DISEASE OF [place] CORONARY ARTERY W/O ANG PCTRS Status: Acute Qualifiers: Coronary Disease-Associated Artery/Lesion type: [place] artery [place] vs. transplanted heart: [place] heart Associated angina: without angina Qualified Code(s): I25.10 - Atherosclerotic heart disease of [place] coronary artery without angina pectoris Comment: Hx of [place] with evidence of ischemic cardiomyopathy. (5) Cardiomyopathy Code(s): I42.9 - CARDIOMYOPATHY, UNSPECIFIED Status: Acute Qualifiers: Cardiomyopathy type: ischemic Qualified Code(s): I25.5 - Ischemic cardiomyopathy Comment: EF 20-25%. Appears ischemic (6) NSTEMI (non-ST elevated myocardial infarction) Code(s): I21.4 - NON-ST ELEVATION (NSTEMI) MYOCARDIAL INFARCTION Status: Acute Comment: Type II with demand ischemia. (7) Opioid dependence Code(s): F11.20 - OPIOID DEPENDENCE, UNCOMPLICATED Status: Acute Qualifiers: Substance use status: in withdrawal Qualified Code(s): F11.23 - Opioid dependence with withdrawal Comment: Rheumatoid arthritis related pain. Dose reduced in hospital. Still on a healthy dose. (8) PNA (pneumonia) Code(s): J18.9 - PNEUMONIA, UNSPECIFIED ORGANISM Status: Ruled-out Qualifiers: Pneumonia type: due to unspecified organism Laterality: right Lung location: upper lobe of lung Qualified Code(s): J18.1 - Lobar pneumonia, unspecified organism Comment: Initially infiltrate looked like pneumonia, but now more consistent with heart failure. (9) UTI (urinary tract infection) Status: Ruled-out Comment: Very low colony counts. Not likely a true pathogen. (10) Cardiogenic shock Code(s): R57.0 - CARDIOGENIC SHOCK Status: Acute Comment: On low dose levophed. - Plan * Long discussion with patient's partner and surrogate. She understands the gravity of the situation and is communicating with the patient's family. * Continue diuresis as pressure tolerates. * Prognosis still poor overall. * Time spent in patient care and discussion with partner/surrogate 35 min.
[2018-04-16] MEDS ORDERED: Potassium Phosphate 30 MMOL in Sodium Chloride 0.9% 500 ML IVPB SCH (14:30)
--- NOTE | 2018-04-16 15:16 | PRG ---
DATE OF SERVICE: 04/16/2018 SERVICE: Pulmonary Medicine. INTERVAL HISTORY: The patient did okay overnight. Blood pressures are fallen off a little bit. This is because she requires some sedation to keep her comfortable on mechanical ventilator. She cannot provide any additional elements of the history right now. Occasionally, she will have a coughing fit. She has copious amounts of very thin clear fluid from her endotracheal tube. OBJECTIVE: VITAL SIGNS: Afebrile, pulse 102, blood pressure 101/73, respirations 21, saturation 97% on 60% FiO2 and PEEP of 7. GENERAL: The patient is intubated and sedated. HEENT: Normocephalic and atraumatic. Sclerae white. Conjunctivae pink. Oral mucosa is moist without lesions. LUNGS: Extensive crackles are present. No prolonged expiratory phase or wheezing is appreciated. HEART: Normal rate and regular. ABDOMEN: Soft, nontender, and nondistended. Bowel sounds are positive. MUSCULOSKELETAL: No cyanosis or clubbing. There is trace to 1+ pitting in the bilateral lower extremities. NEUROLOGIC: Grossly nonfocal. LABORATORY DATA: WBC 8.7, hemoglobin 10.9, and platelets 299,000. Basic metabolic profile is essentially unremarkable. Potassium 3.6, magnesium 2.3. TSH falls within the normal limits. Phosphorus 1.8. IMAGING: Chest x-ray demonstrates interval placement of an endotracheal tube, which is in good position. There is increase in intensity of the infiltrate in the right upper lobe, suggestive of asymmetric edema. Other findings of edema are still present. ASSESSMENT: 1. Acute hypoxic respiratory failure. 2. Acute on chronic systolic, diastolic, and valvular heart failure. 3. Severe mitral regurgitation. 4. Hypophosphatemia. 5. Hypokalemia. DISCUSSION AND PLAN: We will replace potassium and phosphorus today. She will remain on the mechanical ventilator. We will try to keep her blood pressures fairly low to prevent significant regurgitant flow through the heart. Pulmonary Critical Care will continue to follow along in this location. I have made multiple adjustments to the ventilator today to improve the patient comfort. CRITICAL CARE TIME: 30 minutes. Job ID: [id number]
[2018-04-16] MEDS: Acetaminophen 325 MG TAB PO PRN (19:35)
[2018-04-17] MEDS: Hydrocortisone Sod Succ/PF 100 mg/2 ml Vial IVP SCH ×2 (02:45→14:45)
[2018-04-17] MEDS: Furosemide 40 MG/4 ML VIAL SLOW IVP SCH ×2 (05:32→13:39)
[2018-04-17 06:18] LABS: Anion Gap 16 mmol/L (10-20); BUN (Urea Nitrogen) 16 mg/dL (9.8-20.1); Calc. Creatinine Clearance 91 mL/min (70-130); Carbon Dioxide 24 mmol/L (23-31); Chloride 99 mmol/L (98-107); Estimated GFR-MDRD 79; Glucose 139 mg/dL (80-115); Phosphorus 3.4 mg/dL (2.3-4.7); Potassium 2.9 mmol/L (3.5-5.1); Sodium 136 mmol/L (136-145)
[2018-04-17] MEDS: Potassium Chloride 40 MEQ in Premix Bag 1 BAG IVPB SCH ×2 (08:50→13:35)
[2018-04-17] MEDS: Enoxaparin Sodium 80 MG/0.8 ML SYRINGE SC SCH ×2 (09:25→20:38)
[2018-04-17] MEDS: Rosuvastatin 20 MG TAB PO SCH (09:25)
[2018-04-17] MEDS: guaiFENesin ER 600 MG TAB PO SCH (09:28)
[2018-04-17] MEDS: Digoxin 0.5 MG/2 ML AMP SLOW IVP SCH ×2 (12:45→18:01)
[2018-04-17] MEDS: fentaNYL 50 mcg/hour Patch TD SCH (14:33)
--- NOTE | 2018-04-17 14:49 | PRG ---
DATE OF SERVICE: 04/17/2018 SERVICE: Pulmonary Medicine. INTERVAL HISTORY: The patient's oxygen requirements have improved dramatically. She is on 40 mcg per hour of fentanyl. She is also on Precedex. The Precedex has been magical in decreasing her fentanyl and propofol requirements. She is perfectly cool, calm, and collected. She denies any current pain, nausea, vomiting. PHYSICAL EXAMINATION: VITAL SIGNS: Afebrile currently. Her T-max overnight was 101.6. Pulse 103, blood pressure 99/66, respirations 29, saturation 96% on 29% FiO2 and a PEEP of 5. HEENT: Normocephalic and atraumatic. Sclerae white. Conjunctivae pink. Oral mucosa is moist without lesions. LUNGS: Excellent air entry. There is no prolonged expiratory phase or wheezing. HEART: Normal rate, regular. ABDOMEN: Soft, nontender, and nondistended. Bowel sounds are positive. MUSCULOSKELETAL: No cyanosis or clubbing. There is 1+ pitting in the bilateral lower extremities, which is slightly improved. LABORATORY DATA: Potassium 2.9. Basic metabolic profile is otherwise unremarkable. Creatinine continued to trend downward, bicarb 24. Presumptive enterococcus is growing in the urine culture. Blood cultures x2 and urine culture are negative from the 5th. ASSESSMENT: 1. Acute hypoxic respiratory failure. 2. Acute on chronic systolic, diastolic, and valvular heart failure. 3. Severe mitral regurgitation. 4. Heavy dependence on narcotics, and benzodiazepines. DISCUSSION AND PLAN: We will once again replace the potassium. We will continue to diurese the patient through time. I will repeat a magnesium, and phosphorus level with tomorrow morning's laboratories. We will continue to wean away oxygen as tolerated. I think that we should consider leaving her on the Precedex drip even after she is extubated to facilitate weaning from the fentanyl. I will put her on a fentanyl patch and we will see if we can come off the drip. I am going to provide no additional pain medications. We are going to stop the Mucinex, as she is not having any significant secretions. Critical Care will continue following. CRITICAL CARE TIME: 30 minutes. Job ID: [id number]
[2018-04-17] MEDS: Amiodarone 450 MG, Admixture Fee 1 EACH in Dextrose 5% in Water 250 ML IVPB SCH (14:59)
--- NOTE | 2018-04-17 15:15 | PDOC.PN ---
- Subjective Encounter Start Date: 04/17/18 Encounter Start Time: 08:45 Intubated, sedated. - Objective Resuscitation Status - Order Detail: 04/13/18 11:49 Resuscitation Status Routine Resuscitation Status: FULL: Full Resuscitation Vital Signs & Weight: Vital Signs (12 hours) Temp Pulse Resp BP Pulse Ox 04/17/18 14:32 80 103/61 04/17/18 14:00 25 H 04/17/18 12:45 89 04/17/18 12:00 98.8 F 26 H 04/17/18 10:29 105 H 94/66 04/17/18 10:27 102 H 21 H 95 04/17/18 10:00 21 H 04/17/18 08:00 98.2 F 21 H 04/17/18 07:50 21 H 97 04/17/18 06:22 109 H 109/89 04/17/18 06:20 100 21 H 98 04/17/18 06:00 21 H 04/17/18 04:00 98.4 F 21 H Weight Admit Weight 171 lb 4.787 oz Weight 174 lb 2.643 oz Most Recent Monitor Data Heart Rate from ECG 77 NIBP 104/60 NIBP BP-Mean 74 Respiration from ECG 27 SpO2 92 I&O: 04/16/18 04/17/18 04/18/18 06:59 06:59 06:59 Intake Total 2005.9 1274.0 550 Output Total 1083 1960 1495 Balance 922.9 -686.0 -945 Result Diagrams: 04/16/18 04:30 04/17/18 04:50 Phys Exam - Physical Examination Constitutional: NAD Intubated Respiratory: no wheezing, no rales, no rhonchi, clear to auscultation bilateral Cardiovascular: RRR, no significant murmur Gastrointestinal: soft, non-tender Very mild abd distention. Musculoskeletal: no edema Dx/Plan (1) Acute respiratory failure with hypoxia Code(s): J96.01 - ACUTE RESPIRATORY FAILURE WITH HYPOXIA Status: Acute Comment: Followed by [facility]. Intubated. Weaning as tolerated. Secondary to CHF. (2) Acute systolic heart failure Code(s): I50.21 - ACUTE SYSTOLIC (CONGESTIVE) HEART FAILURE Status: Acute Comment: Severe ischemic cardiomyopathy of LV with EF 20-25%. Moderate to severe MR. Worsening pulmonary edema. Partner reports she had been experiencing some symptoms of CHF or months prior to admission. Diuresis, rate control. (3) Atrial fibrillation with rapid ventricular response Code(s): I48.91 - UNSPECIFIED ATRIAL FIBRILLATION Status: Acute Comment: Still tachycardic with Amio, dig and cardizem gtt. Cards following. SBP 90's limits ability to push cardizem. (4) CAD (coronary artery disease) Code(s): I25.10 - ATHSCL HEART DISEASE OF [place] CORONARY ARTERY W/O ANG PCTRS Status: Acute Qualifiers: Coronary Disease-Associated Artery/Lesion type: [place] artery [place] vs. transplanted heart: [place] heart Associated angina: without angina Qualified Code(s): I25.10 - Atherosclerotic heart disease of [place] coronary artery without angina pectoris Comment: Hx of [place] with evidence of ischemic cardiomyopathy. (5) Cardiomyopathy Code(s): I42.9 - CARDIOMYOPATHY, UNSPECIFIED Status: Acute Qualifiers: Cardiomyopathy type: ischemic Qualified Code(s): I25.5 - Ischemic cardiomyopathy Comment: EF 20-25%. Appears ischemic (6) NSTEMI (non-ST elevated myocardial infarction) Code(s): I21.4 - NON-ST ELEVATION (NSTEMI) MYOCARDIAL INFARCTION Status: Acute Comment: Type II with demand ischemia. (7) Opioid dependence Code(s): F11.20 - OPIOID DEPENDENCE, UNCOMPLICATED Status: Acute Qualifiers: Substance use status: in withdrawal Qualified Code(s): F11.23 - Opioid dependence with withdrawal Comment: Rheumatoid arthritis related pain. Dose reduced in hospital. Still on a healthy dose. Using Precedex to help wean the Fentanyl. (8) PNA (pneumonia) Code(s): J18.9 - PNEUMONIA, UNSPECIFIED ORGANISM Status: Ruled-out Qualifiers: Pneumonia type: due to unspecified organism Laterality: right Lung location: upper lobe of lung Qualified Code(s): J18.1 - Lobar pneumonia, unspecified organism Comment: Initially infiltrate looked like pneumonia, but now more consistent with heart failure. (9) UTI (urinary tract infection) Status: Ruled-out Comment: Very low colony counts. Not likely a true pathogen. (10) Cardiogenic shock Code(s): R57.0 - CARDIOGENIC SHOCK Status: Acute Comment: Off pressors and maintaining better BP. (11) Hypokalemia Code(s): E87.6 - HYPOKALEMIA Status: Acute - Plan * Continue manage rate control as BP tolerates. Cardiology following * Continue to diurese. * Wean vent as possible. Pulm following. * Replacing lytes as needed.
[2018-04-17] MEDS: fentaNYL Citrate/PF 2,000 MCG in Sodium Chloride 0.9% 60 ML IV SCH (16:28)
[2018-04-17] MEDS: Metoprolol Tartrate 50 MG TAB PER TUBE SCH (20:38)
[2018-04-18] MEDS: Digoxin 0.5 MG/2 ML AMP SLOW IVP SCH ×2 (00:19→06:28)
[2018-04-18] MEDS: Hydrocortisone Sod Succ/PF 100 mg/2 ml Vial IVP SCH (03:17)
[2018-04-18 05:37] LABS: Anion Gap 13 mmol/L (10-20); BUN (Urea Nitrogen) 18 mg/dL (9.8-20.1); Calc. Creatinine Clearance 90 mL/min (70-130); Calcium 8.5 mg/dL (7.8-10.44); Carbon Dioxide 26 mmol/L (23-31); Chloride 100 mmol/L (98-107); Estimated GFR-MDRD 78; Glucose 121 mg/dL (80-115); Magnesium 1.8 mg/dL (1.6-2.6); Phosphorus 3.5 mg/dL (2.3-4.7); Potassium 3.9 mmol/L (3.5-5.1); Sodium 135 mmol/L (136-145)
[2018-04-18] MEDS: Furosemide 40 MG/4 ML VIAL SLOW IVP SCH ×2 (06:28→14:08)
[2018-04-18] MEDS: Rosuvastatin 20 MG TAB PO SCH (08:02)
[2018-04-18] MEDS: Enoxaparin Sodium 80 MG/0.8 ML SYRINGE SC SCH ×2 (08:03→20:18)
[2018-04-18] MEDS: Metoprolol Tartrate 50 MG TAB PER TUBE SCH ×2 (08:03→20:18)
[2018-04-18] MEDS ORDERED: Digoxin 0.5 MG/2 ML AMP SLOW IVP SCH (09:00)
--- NOTE | 2018-04-18 10:29 | PRG ---
DATE OF SERVICE: 04/18/2018 SUBJECTIVE: Ms. Self remains intubated on ventilator. She is awake and appears alert. There are two friends in the room. OBJECTIVE: GENERAL: The patient appears comfortable. VITAL SIGNS: Blood pressure 103/61, pulse is sinus, it is in the mid to high 70s. LUNGS: Clear anteriorly and laterally. CARDIAC: Normal S1 and normal S2. ABDOMEN: Soft, nontender. EXTREMITIES: No significant edema. PERTINENT LABORATORY DATA: Potassium is 3.9 and it was 2.9 yesterday. ASSESSMENT: 1. Congestive heart failure. 2. Mitral regurgitation. 3. ? Pneumonia. 4. Paroxysmal atrial fibrillation. Unfortunately, she is maintaining in sinus rhythm. 5. History of "DEMI inhibitor or lisinopril allergy.". PLAN: 1. We will check to see what the allergy was. 2. Continue furosemide. 3. Reduce maintenance digoxin dose. 4. Beta blockers and amiodarone. Please give her magnesium. 5. Recheck chest x-ray and clinical status tomorrow. She is currently on antibiotics. We will discuss with Pulmonary whether they think, she has pneumonia now or whether she has ever had it or there is a heart failure. Prognosis remains guarded. Discussed with family and friends. Job ID: [id number]
[2018-04-18] MEDS ORDERED: Magnesium Sulfate 3 GM in Sodium Chloride 0.9% 100 ML IVPB SCH (11:00)
[2018-04-18] MEDS ORDERED: Losartan 25 MG TAB PO SCH (14:00)
--- NOTE | 2018-04-18 14:30 | PRG ---
DATE OF SERVICE: 04/18/2018 SERVICE: Pulmonary Medicine. INTERVAL HISTORY: The patient is doing a little bit worse from respiratory standpoint. Her oxygen requirements are actually going up a little bit. This is likely because her blood pressures firming up a touch. She cannot provide any additional elements of the history. She currently appears to be comfortable. She is not struggling to catch her breath. PHYSICAL EXAMINATION: VITAL SIGNS: Afebrile, pulse 66, blood pressure 140/66, respirations 19, and saturation 98% on 40% FiO2 and a PEEP of 7 currently. GENERAL: The patient is intubated and sedated. HEENT: Normocephalic and atraumatic. Sclerae white. Conjunctivae pink. Oral mucosa is moist without lesions. LUNGS: Decent air entry. Crackles are present, which are extensive throughout bilateral lung [place]. No prolonged expiratory phase or wheezing is appreciated. HEART: Normal rate and regular. ABDOMEN: Soft, nontender, and nondistended. Bowel sounds are positive. MUSCULOSKELETAL: No cyanosis or clubbing. There is diffuse 2+ pitting throughout. GENITOURINARY: Peacock catheter in place. NEUROLOGIC: Grossly nonfocal. LABORATORY DATA: WBC 8.7, hemoglobin 10.9, and platelets 299,000. Sodium 135 and potassium 3.9. Basic metabolic profile is otherwise unremarkable. Magnesium 1.8. Blood cultures x2 are unremarkable. Urine culture is growing presumptive enterococcus. Repeat urine culture is negative to date. ASSESSMENT: 1. Acute hypoxic respiratory failure. 2. Acute on chronic systolic, diastolic, and valvular heart failure. 3. Severe mitral regurgitation. 4. Heavy dependence on narcotics and benzodiazepines. DISCUSSION AND PLAN: The mag and phos are currently normal. That being said, they have been replaced every single day, so I am going to get ahead of the curve and give her a couple doses of these things today. We will continue our diuretics through time. We will actually intensify our dosing schedule. Blood pressure medications will be introduced to prevent her from becoming hypertensive as this will increase her regurgitant flow into the lungs. Pulmonary Critical Care will continue to follow. Hopefully in 24 to 48 hours, if her oxygen requirements are lower, she will be a candidate for a spontaneous breathing trial and possible extubation. Critical care time: 30 minutes. Job ID: [id number] [facility]
[2018-04-18] MEDS ORDERED: Potassium Chloride 40 MEQ in Premix Bag 1 BAG IVPB SCH (18:00)
[2018-04-18] MEDS ORDERED: Furosemide 40 MG/4 ML VIAL SLOW IVP SCH (20:00)
--- NOTE | 2018-04-18 21:14 | PDOC.PN ---
- Subjective Encounter Start Date: 04/18/18 Encounter Start Time: 09:20 Intubated, but awake. Indicates she is tolerating the ETT well. - Objective Resuscitation Status - Order Detail: 04/13/18 11:49 Resuscitation Status Routine Resuscitation Status: FULL: Full Resuscitation Vital Signs & Weight: Vital Signs (12 hours) Temp Pulse Resp BP 04/18/18 20:00 17 04/18/18 19:00 98.4 F 04/18/18 18:19 79 131/53 L 04/18/18 18:00 16 04/18/18 16:00 98.4 F 14 04/18/18 14:00 16 04/18/18 13:31 66 04/18/18 12:00 98.6 F 16 04/18/18 10:33 72 04/18/18 10:00 13 Weight Admit Weight 171 lb 4.787 oz Weight 174 lb 9.698 oz Most Recent Monitor Data Heart Rate from ECG 73 NIBP 109/44 NIBP BP-Mean 65 Respiration from ECG 15 SpO2 93 I&O: 04/17/18 04/18/18 04/19/18 06:59 06:59 06:59 Intake Total 1274.0 1748 882 Output Total 3940 4187 8560 Balance -686.0 -055 -2599 Result Diagrams: 04/16/18 04:30 04/18/18 04:30 Phys Exam - Physical Examination Constitutional: NAD Intubated, but awake. No distress Respiratory: no wheezing Scattered rales bilaterally. Cardiovascular: RRR, no significant murmur Gastrointestinal: soft, non-tender, no distention Musculoskeletal: no edema Dx/Plan (1) Acute respiratory failure with hypoxia Code(s): J96.01 - ACUTE RESPIRATORY FAILURE WITH HYPOXIA Status: Acute Comment: Followed by Pulm CC. Intubated. Weaning as tolerated. Secondary to CHF. (2) Acute systolic heart failure Code(s): I50.21 - ACUTE SYSTOLIC (CONGESTIVE) HEART FAILURE Status: Acute Comment: Severe ischemic cardiomyopathy of LV with EF 20-25%. Moderate to severe MR. Worsening pulmonary edema. Diuresis. Cardiology following. (3) Atrial fibrillation with rapid ventricular response Code(s): I48.91 - UNSPECIFIED ATRIAL FIBRILLATION Status: Acute Comment: HR better. BP better. Amio and Lopressor. Cards following. (4) CAD (coronary artery disease) Code(s): I25.10 - ATHSCL HEART DISEASE OF [place] CORONARY ARTERY W/O ANG PCTRS Status: Acute Qualifiers: Coronary Disease-Associated Artery/Lesion type: [place] artery [place] vs. transplanted heart: [place] heart Associated angina: without angina Qualified Code(s): I25.10 - Atherosclerotic heart disease of [place] coronary artery without angina pectoris Comment: Hx of [place] with evidence of ischemic cardiomyopathy. (5) Cardiomyopathy Code(s): I42.9 - CARDIOMYOPATHY, UNSPECIFIED Status: Acute Qualifiers: Cardiomyopathy type: ischemic Qualified Code(s): I25.5 - Ischemic cardiomyopathy Comment: EF 20-25%. Appears ischemic (6) NSTEMI (non-ST elevated myocardial infarction) Code(s): I21.4 - NON-ST ELEVATION (NSTEMI) MYOCARDIAL INFARCTION Status: Acute Comment: Type II with demand ischemia. (7) Opioid dependence Code(s): F11.20 - OPIOID DEPENDENCE, UNCOMPLICATED Status: Acute Qualifiers: Substance use status: in withdrawal Qualified Code(s): F11.23 - Opioid dependence with withdrawal Comment: Rheumatoid arthritis related pain. Dose reduced in hospital. Still on a healthy dose. Using Precedex to help wean the Fentanyl. (8) PNA (pneumonia) Code(s): J18.9 - PNEUMONIA, UNSPECIFIED ORGANISM Status: Ruled-out Qualifiers: Pneumonia type: due to unspecified organism Laterality: bilateral Comment: Initially infiltrate looked like pneumonia, but now more consistent with heart failure. Has been on antibiotic coverage from admission. (9) UTI (urinary tract infection) Status: Ruled-out Comment: Very low colony counts. Not likely a true pathogen. (10) Cardiogenic shock Code(s): R57.0 - CARDIOGENIC SHOCK Status: Acute Comment: Off pressors and maintaining better BP. (11) Hypokalemia Code(s): E87.6 - HYPOKALEMIA Status: Resolved - Plan * Pulm / CC and Cardiology following. * Vent management per Pulm. * She appears to be improving in that she is off pressors and HR is normalized. * Repeat CXR in am. * Discussed with Dr. Harman.
[2018-04-19] MEDS: Amiodarone 450 MG, Admixture Fee 1 EACH in Dextrose 5% in Water 250 ML IVPB SCH (00:24)
[2018-04-19 04:59] LABS: Digoxin 1.51 ng/mL (0.8-2.0)
[2018-04-19 05:01] LABS: Anion Gap 12 mmol/L (10-20); BUN (Urea Nitrogen) 16 mg/dL (9.8-20.1); Calc. Creatinine Clearance 86 mL/min (70-130); Calcium 8.3 mg/dL (7.8-10.44); Carbon Dioxide 29 mmol/L (23-31); Chloride 98 mmol/L (98-107); Estimated GFR-MDRD 79; Glucose 107 mg/dL (80-115); Sodium 136 mmol/L (136-145)
[2018-04-19 05:09] LABS: Potassium 2.9 mmol/L (3.5-5.1)
[2018-04-19] MEDS: Furosemide 40 MG/4 ML VIAL SLOW IVP SCH ×2 (05:38→14:20)
[2018-04-19] MEDS: Enoxaparin Sodium 80 MG/0.8 ML SYRINGE SC SCH ×2 (07:31→21:23)
[2018-04-19] MEDS: Metoprolol Tartrate 50 MG TAB PER TUBE SCH ×2 (07:31→21:23)
[2018-04-19] MEDS: Losartan 25 MG TAB PO SCH (07:31)
[2018-04-19] MEDS: Rosuvastatin 20 MG TAB PO SCH (07:31)
[2018-04-19] MEDS ORDERED: Digoxin 0.5 MG/2 ML AMP SLOW IVP SCH (09:00)
[2018-04-19] MEDS ORDERED: Potassium Chloride 40 MEQ in Premix Bag 1 BAG IVPB SCH ×3 (09:30→20:00)
--- NOTE | 2018-04-19 09:49 | RAD ---
PORTABLE AP CHEST RADIOGRAPH: Date: 04-19-18 History: Respiratory failure. Comparison: 04-15-18 FINDINGS: Endotracheal tube and left subclavian central venous catheter remain in place and unchanged in positi on. There has been interval placement of the nasogastric tube which courses into the upper abdomen wh ich is not completely imaged. There are interstitial and alveolar opacities again seen throughout the lungs bilaterally, greater on the right. Probable small bilateral pleural effusions present. Calcifi ed granuloma is seen at the left lung base which a calcific density also again appearing overlying th e left hilar region. Cardiac silhouette is magnified by projection. No other interval change. IMPRESSION: 1. Diffuse bilateral interstitial and alveolar opacities which may be related to multifocal pneumonia or persistent pulmonary edema. 2. Small bilateral pleural effusions. 3. Interval placement of the nasogastric tube. POS: [facility]
[2018-04-19] MEDS ORDERED: Amiodarone 200 MG TAB PO SCH (11:00)
--- NOTE | 2018-04-19 11:39 | PRG ---
DATE OF SERVICE: 04/19/2018 SUBJECTIVE: Ms. Self remains intubated on the ventilator. OBJECTIVE: GENERAL: The patient appears comfortable. VITAL SIGNS: Her blood pressure is 102/52, pulse 64, it is sinus. NECK: Veins appear normal. LUNGS: Clear anteriorly and laterally. CARDIAC: Normal S1. Normal S2. There is no murmur, rub, or gallop. ABDOMEN: Soft and nontender. EXTREMITIES: Warm and dry. PERTINENT LABORATORY DATA: Potassium is 2.9, creatinine is 0.73. The hemoglobin is 10.9. Chest x-ray shows diffuse interstitial infiltrates. ASSESSMENT: 1. Congestive heart failure, systolic, acute on chronic. 2. Coronary artery disease with previous extensive myocardial infarction based on echocardiogram. 3. Mitral regurgitation. 4. Recent pneumonia. 5. Possible acute respiratory distress syndrome as well. 6. Atrial fibrillation, now in sinus rhythm. PLAN: 1. We will change to oral or NG amiodarone. 2. Replete potassium. Discontinue furosemide. 3. Continue enoxaparin. 4. Prognosis is guarded. We will discuss again with the patient's partner. The patient has multiple medical problems and she remains in a very critical situation. Job ID: [id number]
[2018-04-19] MEDS: Amiodarone 200 MG TAB PO SCH ×2 (14:22→21:23)
--- NOTE | 2018-04-19 22:24 | PDOC.PN ---
- Subjective Encounter Start Date: 04/19/18 Encounter Start Time: 11:00 Intubated. Awake. Communicating with communication board and writing. - Objective Resuscitation Status - Order Detail: 04/13/18 11:49 Resuscitation Status Routine Resuscitation Status: FULL: Full Resuscitation Vital Signs & Weight: Vital Signs (12 hours) Temp Pulse Resp Pulse Ox 04/19/18 22:00 14 04/19/18 20:00 99.5 F 18 04/19/18 18:20 78 20 93 L 04/19/18 18:00 18 04/19/18 16:00 99.0 F 13 04/19/18 15:01 71 04/19/18 14:00 15 04/19/18 13:03 69 04/19/18 12:00 98.6 F 15 04/19/18 10:38 67 Weight Admit Weight 171 lb 4.787 oz Weight 165 lb 9.074 oz Most Recent Monitor Data Heart Rate from ECG 70 NIBP 102/39 NIBP BP-Mean 60 Respiration from ECG 17 SpO2 96 I&O: 04/18/18 04/19/18 04/20/18 06:59 06:59 06:59 Intake Total 1748 1498 1112 Output Total 2166 3535 1645 Balance -418 -2037 -533 Result Diagrams: 04/16/18 04:30 04/19/18 04:35 Phys Exam - Physical Examination Constitutional: NAD intubated Scattered rales. Cardiovascular: RRR, no significant murmur Gastrointestinal: soft, non-tender, no distention Musculoskeletal: no edema Deviation from normal: No agitation. Skin: normal turgor Dx/Plan (1) Acute respiratory failure with hypoxia Code(s): J96.01 - ACUTE RESPIRATORY FAILURE WITH HYPOXIA Status: Acute Comment: Followed by Pulm CC. Intubated. Weaning as tolerated. Secondary to CHF and pneumonia. (2) Acute systolic heart failure Code(s): I50.21 - ACUTE SYSTOLIC (CONGESTIVE) HEART FAILURE Status: Acute Comment: Severe ischemic cardiomyopathy of LV with EF 20-25%. Moderate to severe MR. Worsening pulmonary edema. Diuresis. Cardiology following. (3) Atrial fibrillation with rapid ventricular response Code(s): I48.91 - UNSPECIFIED ATRIAL FIBRILLATION Status: Acute Comment: HR better. BP better. Amio and Lopressor. Cards following. (4) CAD (coronary artery disease) Code(s): I25.10 - ATHSCL HEART DISEASE OF [place] CORONARY ARTERY W/O ANG PCTRS Status: Acute Qualifiers: Coronary Disease-Associated Artery/Lesion type: [place] artery [place] vs. transplanted heart: [place] heart Associated angina: without angina Qualified Code(s): I25.10 - Atherosclerotic heart disease of [place] coronary artery without angina pectoris Comment: Hx of [place] with evidence of ischemic cardiomyopathy. (5) Cardiomyopathy Code(s): I42.9 - CARDIOMYOPATHY, UNSPECIFIED Status: Acute Qualifiers: Cardiomyopathy type: ischemic Qualified Code(s): I25.5 - Ischemic cardiomyopathy Comment: EF 20-25%. Appears ischemic. Exacerbated by MR. (6) NSTEMI (non-ST elevated myocardial infarction) Code(s): I21.4 - NON-ST ELEVATION (NSTEMI) MYOCARDIAL INFARCTION Status: Acute Comment: Type II with demand ischemia. (7) Opioid dependence Code(s): F11.20 - OPIOID DEPENDENCE, UNCOMPLICATED Status: Acute Qualifiers: Substance use status: in withdrawal Qualified Code(s): F11.23 - Opioid dependence with withdrawal Comment: Rheumatoid arthritis related pain. Dose reduced in hospital. Still on a healthy dose. Using Precedex to help wean the Fentanyl. (8) PNA (pneumonia) Code(s): J18.9 - PNEUMONIA, UNSPECIFIED ORGANISM Status: Ruled-out Qualifiers: Pneumonia type: due to unspecified organism Laterality: bilateral Comment: Continue Levaquin. Persistent infiltrates on CXR. (9) UTI (urinary tract infection) Status: Ruled-out (10) Cardiogenic shock Code(s): R57.0 - CARDIOGENIC SHOCK Status: Acute Comment: Off pressors and maintaining better BP. (11) Hypokalemia Code(s): E87.6 - HYPOKALEMIA Status: Resolved Comment: Continue aggressive replacement. - Plan * Discussed with Dr. Raymond.
[2018-04-19] MEDS: Acetaminophen 325 MG TAB PO PRN (23:50)
[2018-04-20 05:31] LABS: Hemoglobin 9.2 g/dL (12.0-16.0); Platelet Count 266 thou/uL (130-400)
[2018-04-20 05:44] LABS: Anion Gap 12 mmol/L (10-20); BUN (Urea Nitrogen) 20 mg/dL (9.8-20.1); Calc. Creatinine Clearance 80 mL/min (70-130); Calcium 8.1 mg/dL (7.8-10.44); Carbon Dioxide 30 mmol/L (23-31); Chloride 96 mmol/L (98-107); Estimated GFR-MDRD 72; Glucose 127 mg/dL (80-115); Potassium 3.1 mmol/L (3.5-5.1); Sodium 135 mmol/L (136-145)
--- NOTE | 2018-04-20 07:45 | RAD ---
PORTABLE SEMIUPRIGHT FRONTAL CHEST RADIOGRAPH: DATE: 04/20/2018. COMPARISON: 04/19/2018. HISTORY: Respiratory distress, respiratory failure, ventilated patient. FINDINGS: Stable endotracheal tube, nasogastric tube, and left-sided vascular catheter. There is extensive int erstitial and alveolar opacity throughout both lungs, most prominent on the left, particularly in the left base. Overall, aeration has improved within both lungs with significant persistent pulmonary p arenchymal opacity noted on this exam. Blunting of bilateral costophrenic angles suggests bilateral pleural effusions. IMPRESSION: Findings suggesting pulmonary edema, improved when compared to 04/19/2018. Infectious pneumonitis or aspiration cannot be excluded. Followup to full resolution advised. POS: [facility]
[2018-04-20] MEDS: Amiodarone 200 MG TAB PO SCH ×3 (08:01→22:45)
--- NOTE | 2018-04-20 08:46 | PRG ---
DATE OF SERVICE: 04/19/2018 SUBJECTIVE: [place] Self was intubated over the weekend. She appears comfortable in the ventilator with Precedex. She wants to communicate via ipad and wants to have her restraints removed, and I have recommended against this. OBJECTIVE: VITAL SIGNS: Stable. Heart rate is 70, respiratory rate is 20, oxygen saturation is 93%, blood pressure 130/52. LUNGS: Remarkable for crackles at the bases. HEART: Regular rhythm. ABDOMEN: Soft and nontender. LABORATORY DATA: White count 8.7, hemoglobin 10.9, and platelets 299. Sodium 136, potassium 3.9, chloride 98, bicarbonate 29, BUN 16, and creatinine 0.73. Chest x-ray, diffuse bilateral alveolar infiltrates. IMPRESSION: 1. Pneumonia on presentation, probably obscured by opioid use suppressing her cough. 2. Mixture of noncardiogenic and cardiogenic pulmonary edema. 3. Echocardiogram suggested there was past myocardial infarction with significant thinning of the myocardium. 4. Mitral regurgitation. 5. Deconditioning, secondary to chronic pain. PLAN: Continue supportive care. I met with her significant other and answered all of his questions to his satisfaction. In talking with the nursing staff, there are some family dynamics that have made it difficult for Ms. Self's significant other trying to relay information to the people out of town. I have suggested that she encourage them to come here to visit. All of their questions can be answered directly if they come down to see her. CRITICAL CARE TIME: 30 minutes. Job ID: [id number] MTDD
--- NOTE | 2018-04-20 09:57 | CT ---
CT ABDOMEN AND PELVIS WITHOUT CONTRAST: HISTORY: Left lower quadrant pain. Bleeding. On Lovenox. COMPARISON: None. FINDINGS: Moderate-sized layering bilateral pleural effusions slightly larger on the right. Mild edema of the lower lobes. No pericardial effusion. There is a large left rectus sheath hematoma which is partially liquified m easuring 7.8 x 5.1 x approximately 26 cm in craniocaudad dimension. The right rectus sheath is not i nvolved. Mild overlying soft tissue swelling may be from a contusion. No dilated loops of large or small bowel. There are calcified granulomas of the spleen. Prior khurram cystectomy. Dense calcifications in the aorta without aneurysmal dilatation. Noncontrast evaluation of the pancreas and adrenal glands unremarkable. No hydronephrosis. There is obstruction of the end plates of T12-L1 with secondary degenerative changes and narrowing of the spi nal canal to approximately 5 mm. There is focal dextroscoliosis at this level. IMPRESSION: 1. Large left rectus sheath hematoma with size as above. Given this large size, close followup of p atient's H&H is recommended. 2. Moderate-sized bilateral pleural effusions. 3. Mild lower lobe pulmonary edema. POS: [facility]
[2018-04-20] MEDS: Losartan 25 MG TAB PO SCH (10:47)
[2018-04-20] MEDS: Metoprolol Tartrate 50 MG TAB PER TUBE SCH ×2 (10:47→22:45)
[2018-04-20] MEDS: Rosuvastatin 20 MG TAB PO SCH (10:48)
[2018-04-20] MEDS ORDERED: Potassium Chloride 40 MEQ in Premix Bag 1 BAG IVPB SCH ×2 (11:15→21:00)
--- NOTE | 2018-04-20 11:51 | PRG ---
DATE OF SERVICE: 04/20/2018 SUBJECTIVE: Ms. Self remains intubated and ventilated. She complained of some abdominal discomfort this morning. She went for a CT scan and was found to have rectus muscle hematoma. Lovenox was discontinued. Her blood pressure was low this morning. The furosemide was not given as the blood pressure was less than 100 systolic. PHYSICAL EXAMINATION: LUNGS: Clear. CARDIAC: Normal S1. Normal S2. ABDOMEN: Soft. EXTREMITIES: Warm and dry. PERTINENT LABORATORY DATA: Potassium is still low at 3.1 despite intravenous potassium. She is in normal sinus rhythm on the monitor. Creatinine 0.79. ASSESSMENT: 1. Respiratory failure, combination of pneumonia, congestive heart failure, and possibly noncardiogenic pulmonary edema. 2. Hypokalemia. 3. Atrial fibrillation, in sinus rhythm. PLAN: 1. Continue to replete potassium. 2. She is off the intravenous amiodarone and she is on oral amiodarone. 3. Enoxaparin has been stopped. Most likely, the hematoma will stabilize. 4. Fortunately, the hemoglobin only dropped to 9.2, we will continue to follow. Job ID: [id number]
[2018-04-20] MEDS: Furosemide 40 MG/4 ML VIAL SLOW IVP SCH ×2 (12:16→16:14)
[2018-04-20] MEDS ORDERED: Pancrelipase DR 12000 1 CAP FS PRN (12:47)
[2018-04-20] MEDS ORDERED: Sodium Bicarbonate Tab 325 MG TAB PER TUBE PRN (12:47)
--- NOTE | 2018-04-20 13:59 | PDOC.PN ---
- Subjective Encounter Start Date: 04/20/18 Encounter Start Time: 12:00 Subjective: on vent, awake and oriented -: family at bedside - Objective Resuscitation Status - Order Detail: 04/13/18 11:49 Resuscitation Status Routine Resuscitation Status: FULL: Full Resuscitation MAR Reviewed: Yes Vital Signs & Weight: Vital Signs (12 hours) Temp Pulse Resp BP Pulse Ox 04/20/18 12:29 66 96/40 L 04/20/18 12:28 67 19 98 04/20/18 12:00 20 04/20/18 11:00 98.7 F 04/20/18 10:35 77 124/48 L 04/20/18 10:00 18 04/20/18 08:00 13 96 04/20/18 07:29 67 91/45 L 04/20/18 07:28 67 14 96 04/20/18 07:00 98.7 F 04/20/18 06:00 14 04/20/18 04:00 99.2 F 16 04/20/18 02:00 14 Weight Admit Weight 171 lb 4.787 oz Weight 161 lb 9.581 oz Most Recent Monitor Data Heart Rate from ECG 71 NIBP 94/37 NIBP BP-Mean 56 Respiration from ECG 17 SpO2 98 I&O: 04/19/18 04/20/18 04/21/18 06:59 06:59 06:59 Intake Total 1498 1824 319 Output Total 3535 1770 140 Balance -2037 54 179 Result Diagrams: 04/20/18 05:00 04/20/18 05:00 Phys Exam - Physical Examination HEENT: PERRLA, moist MMs Neck: no JVD, supple Respiratory: no wheezing, no rales Cardiovascular: RRR, no significant murmur Gastrointestinal: soft, non-tender, positive bowel sounds Musculoskeletal: no edema, pulses present Neurological: non-focal, moves all 4 limbs Psychiatric: A&O x 3 Dx/Plan (1) Acute respiratory failure with hypoxia Code(s): J96.01 - ACUTE RESPIRATORY FAILURE WITH HYPOXIA Status: Acute Comment: Followed by Pulm CC. Intubated. Weaning as tolerated. Secondary to CHF and pneumonia. (2) Acute systolic heart failure Code(s): I50.21 - ACUTE SYSTOLIC (CONGESTIVE) HEART FAILURE Status: Acute Comment: Severe ischemic cardiomyopathy of LV with EF 20-25%. Moderate to severe MR. Worsening pulmonary edema. Diuresis. Cardiology following. (3) Atrial fibrillation with rapid ventricular response Code(s): I48.91 - UNSPECIFIED ATRIAL FIBRILLATION Status: Acute Comment: HR better. BP better. Amio and Lopressor. Cards following. (4) CAD (coronary artery disease) Code(s): I25.10 - ATHSCL HEART DISEASE OF [place] CORONARY ARTERY W/O ANG PCTRS Status: Acute Qualifiers: Coronary Disease-Associated Artery/Lesion type: [place] artery [place] vs. transplanted heart: [place] heart Associated angina: without angina Qualified Code(s): I25.10 - Atherosclerotic heart disease of [place] coronary artery without angina pectoris Comment: Hx of [place] with evidence of ischemic cardiomyopathy. (5) Cardiogenic shock Code(s): R57.0 - CARDIOGENIC SHOCK Status: Resolved Comment: Off pressors and maintaining better BP. (6) Cardiomyopathy Code(s): I42.9 - CARDIOMYOPATHY, UNSPECIFIED Status: Chronic Qualifiers: Cardiomyopathy type: ischemic Qualified Code(s): I25.5 - Ischemic cardiomyopathy Comment: EF 20-25%. Appears ischemic. Exacerbated by MR. (7) HTN (hypertension) Code(s): I10 - ESSENTIAL (PRIMARY) HYPERTENSION Status: Chronic Qualifiers: Hypertension type: essential hypertension Qualified Code(s): I10 - Essential (primary) hypertension (8) PNA (pneumonia) Code(s): J18.9 - PNEUMONIA, UNSPECIFIED ORGANISM Status: Acute Qualifiers: Pneumonia type: due to unspecified organism Laterality: bilateral Comment: Continue Levaquin. Persistent infiltrates on CXR. - Plan weaning per pulm advice -: has abd wall hematoma -: continue amiodarone, lasix, losartan, lopressor -: hold asp, continue crestor -: will f/u, serial h/h * . Review of Systems - Medications/Allergies Allergies/Adverse Reactions: Allergies Allergy/AdvReac Type Severity Reaction Status Date / Time clindamycin Allergy Verified 04/13/18 13:19 lisinopril Allergy Verified 04/13/18 13:19 methotrexate Allergy Verified 04/13/18 13:19 penicillin G Allergy Verified 04/13/18 13:19 Medications: Current Medications Acetaminophen (Tylenol) 650 mg PO Q4H PRN PRN Reason: Headache/Fever/Mild Pain (1-3) Last Admin: 04/19/18 23:50 Dose: 650 mg Albuterol/Ipratropium (Duoneb) 3 ml NEB [id number] [facility] Last Admin: 04/20/18 12:28 Dose: 3 ml Amiodarone HCl (Cordarone) 200 mg PO TID [facility] Last Admin: 04/20/18 08:01 Dose: 200 mg Lipase/Protease/Amylase ([place] [address]) 1 cap FS .PER PROTOCOL PRN PRN Reason: TUBE OCCLUSION PROTOCOL Aspirin (Aspirin Chewable) 81 mg PO MWF@0900 [facility] Fentanyl (Duragesic) 50 mcg TD Q3D [facility] Last Admin: 04/17/18 14:33 Dose: 50 mcg Furosemide (Lasix) 40 mg SLOW IVP 0600,1400 [facility] Last Admin: 04/20/18 12:16 Dose: Not Given Levofloxacin 750 mg/ Device 150 mls @ 100 mls/hr IVPB 0800 [facility] Last Admin: 04/20/18 07:59 Dose: 150 mls Fentanyl Citrate 2,000 mcg/ (Sodium Chloride) 100 mls @ 0 mls/hr IV INF [facility]; Protocol Stop: 05/15/18 16:49 Last Admin: 04/17/18 16:28 Dose: 100 mls Dexmedetomidine HCl 400 mcg/ (Sodium Chloride) 100 mls @ 0 mls/hr IVPB INF [facility] ; Protocol Last Admin: 04/19/18 16:46 Dose: 100 mls Potassium Chloride 40 meq/ (Device) 100 mls @ 25 mls/hr IVPB ONE [facility] Stop: 04/20/18 16:00 Last Admin: 04/20/18 12:19 Dose: 100 mls Potassium Chloride 40 meq/ (Device) 100 mls @ 25 mls/hr IVPB 2100 [facility] Stop: 04/21/18 00:59 Losartan Potassium (Cozaar) 50 mg PO DAILY [facility] Last Admin: 04/20/18 10:47 Dose: 50 mg Metoprolol Tartrate (Lopressor) 50 mg PER TUBE BID [facility] Last Admin: 04/20/18 10:47 Dose: 50 mg Discontinue Previous Narcotic Pain Medications And Benzodiazepines 1 each FS .ONE [facility] Stop: 05/15/18 16:49 Ondansetron HCl (Zofran) 4 mg IVP Q6H PRN PRN Reason: Nausea/Vomiting Rosuvastatin Calcium (Crestor) 20 mg PO DAILY [facility] Last Admin: 04/20/18 10:48 Dose: 20 mg Sertraline HCl (Zoloft) 50 mg PO DAILY [facility] Last Admin: 04/20/18 10:47 Dose: 50 mg Sodium Bicarbonate (Bicarbonate, Sodium) 650 mg PER TUBE .PER PROTOCOL PRN PRN Reason: ENTERAL TUBE OCCLUSION Sodium Chloride (Flush - Normal Saline) 10 ml IVF Q12HR [facility] Last Admin: 04/20/18 09:30 Dose: 10 ml Sodium Chloride (Flush - Normal Saline) 10 ml IVF PRN PRN PRN Reason: Saline Flush
[2018-04-20] MEDS: fentaNYL 50 mcg/hour Patch TD SCH (17:10)
[2018-04-20 17:17] LABS: Hemoglobin 8.1 g/dL (12.0-16.0)
--- NOTE | 2018-04-20 17:28 | PRG ---
DATE OF SERVICE: 04/20/2018 SUBJECTIVE: Ms. Self is awake, alert, moves all extremities, and is anxious to get off the ventilator. OBJECTIVE: VITAL SIGNS: Stable. She is afebrile. Blood pressure in the 90s. Heart rate is in 60s. LUNGS: Actually improved. Her lungs are clear today anteriorly. HEART: Regular rhythm. ABDOMEN: Soft and nontender. EXTREMITIES: Without edema. LABORATORY DATA: Hemoglobin is 9.2. Sodium 135, potassium 3.1, chloride 96, bicarb 30, BUN 20, creatinine 0.79. Still she has a hazy infiltrate on the right. Her abdomen felt full in her left upper quadrant this morning, so I ordered an abdomen and pelvis CT today to rule out a rectus muscle bleed. It turns out she did have a rectus sheath hematoma. She has bilateral effusions as expected. Her Lovenox will be discontinued. We have weaned her down successfully throughout the day and hopefully, we can consider extubation in the morning. Critical care time 30 minutes. Job ID: [id number] MTDD
[2018-04-20] MEDS: Docusate Sodium 100 MG/10 ML UDCUP PO SCH (22:45)
[2018-04-21 05:12] LABS: Anion Gap 10 mmol/L (10-20); BUN (Urea Nitrogen) 28 mg/dL (9.8-20.1); Calc. Creatinine Clearance 71 mL/min (70-130); Calcium 8.2 mg/dL (7.8-10.44); Carbon Dioxide 30 mmol/L (23-31); Chloride 100 mmol/L (98-107); Estimated GFR-MDRD 65; Glucose 155 mg/dL (80-115); Potassium 4.5 mmol/L (3.5-5.1); Sodium 135 mmol/L (136-145)
[2018-04-21] MEDS: Furosemide 40 MG/4 ML VIAL SLOW IVP SCH (06:41)
[2018-04-21] MEDS: Rosuvastatin 20 MG TAB PO SCH (07:22)
[2018-04-21] MEDS: Losartan 25 MG TAB PO SCH (07:23)
[2018-04-21] MEDS: Amiodarone 200 MG TAB PO SCH ×3 (07:25→21:27)
[2018-04-21] MEDS: Polyethylene Glycol 3350 17 GM Packet PER TUBE SCH (07:25)
[2018-04-21] MEDS: Docusate Sodium 100 MG/10 ML UDCUP PO SCH ×2 (09:18→21:36)
[2018-04-21] MEDS: Metoprolol Tartrate 50 MG TAB PER TUBE SCH (09:18)
--- NOTE | 2018-04-21 09:27 | RAD ---
FRONTAL RADIOGRAPH CHEST PORTABLE UPRIGHT: DATE: 04/21/2018. COMPARISON: 04/20/2018. HISTORY: Ventilated CCU patient. FINDINGS: Stable endotracheal tube, nasogastric tube, and left subclavian central venous catheter. There is de nse opacity in the medial left base suggesting left lower lobe consolidation/collapse, stable. Diffu se increased linear interstitial density with pulmonary vascular congestion persists. Patchy areas o f nonspecific airspace disease are noted in the perihilar regions, right upper lobe, and both lung ba ses. IMPRESSION: Stable lines and tubes as detailed above. Extensive interstitial and alveolar opacities may be on th e basis of pulmonary edema and/or infectious pneumonitis. Followup to resolution advised. POS: [facility]
[2018-04-21] MEDS ORDERED: Dexamethasone 4 mg/ml Vial ONE (09:41)
[2018-04-21] MEDS ORDERED: Dexamethasone 4 mg/ml Vial SLOW IVP SCH (09:45)
[2018-04-21] MEDS ORDERED: Morphine 4 MG/ML VIAL ONE (09:54)
[2018-04-21] MEDS ORDERED: Morphine 4 MG/ML VIAL SLOW IVP SCH (10:00)
[2018-04-21] MEDS ORDERED: Morphine 4 MG/ML VIAL SLOW IVP PRN (10:05)
[2018-04-21] MEDS ORDERED: Furosemide 40 MG/4 ML VIAL ONE (10:07)
[2018-04-21] MEDS ORDERED: Furosemide 40 MG/4 ML VIAL SLOW IVP SCH (10:15)
--- NOTE | 2018-04-21 10:42 | PRG ---
DATE OF SERVICE: 04/21/2018 SUBJECTIVE: Ms. Self is now extubated. She is breathing fair and does not have any chest pain. OBJECTIVE: VITAL SIGNS: On examination, her respiratory rate is somewhat elevated and she is working somewhat to breathe. Her blood pressure is 110 systolic, which is improved. NECK: The neck veins are normal. LUNGS: She has some expiratory wheezing. CARDIAC: Normal S1. Normal S2. ABDOMEN: Soft and nontender. EXTREMITIES: There is no edema. The left foot is cooler than the right. I do feel popliteal pulses on the right side today. The patient's partner brought some records, which were very helpful today. She had a cardiac catheterization in 2010 showing 50% right coronary lesion. No flow-limiting disease. She had a recent echocardiogram showing normal left ventricular function. ASSESSMENT: 1. Congestive heart failure, systolic, acute, improving. The chest x-ray still suggests she is still in heart failure. 2. Respiratory failure. 3. Pneumonia. 4. Atrial fibrillation, she is maintaining sinus rhythm. PLAN: 1. We will change from metoprolol to carvedilol. 2. Continue furosemide. 3. Continue oral amiodarone. 4. Potassium has been repleted. 5. She had a rectus muscle hematoma and she is off the Lovenox. 6. Resume aspirin tomorrow. 7. Prognosis remains guarded, but she is somewhat improved. Hopefully, she will be ready for heart catheterization next week. Job ID: [id number]
--- NOTE | 2018-04-21 12:52 | PDOC.PN ---
- Subjective Encounter Start Date: 04/21/18 Encounter Start Time: 08:50 Subjective: got extubated this am, is on high flow oxygen - Objective Resuscitation Status - Order Detail: 04/13/18 11:49 Resuscitation Status Routine Resuscitation Status: FULL: Full Resuscitation MAR Reviewed: Yes Vital Signs & Weight: Vital Signs (12 hours) Temp Pulse Resp BP Pulse Ox 04/21/18 12:32 93 20 98 04/21/18 10:31 103 H 04/21/18 08:35 92 27 H 97 04/21/18 08:00 98.4 F 04/21/18 07:35 18 92 L 04/21/18 06:55 70 107/40 L 04/21/18 06:54 70 20 97 04/21/18 06:00 14 04/21/18 04:00 98.7 F 14 04/21/18 02:00 15 Weight Admit Weight 171 lb 4.787 oz Weight 163 lb 5.8 oz Most Recent Monitor Data Heart Rate from ECG 98 NIBP 115/46 NIBP BP-Mean 69 Respiration from ECG 21 SpO2 96 I&O: 04/20/18 04/21/18 04/22/18 06:59 06:59 06:59 Intake Total 1824 1681.7 Output Total 7535 494 1995 Balance 54 1171.7 -1025 Result Diagrams: 04/20/18 17:06 04/21/18 04:20 Phys Exam - Physical Examination HEENT: PERRLA, moist MMs Neck: no JVD, supple Respiratory: no rales rhonchi++ Cardiovascular: RRR, no significant murmur Gastrointestinal: soft, no distention, positive bowel sounds Musculoskeletal: no edema, pulses present Neurological: non-focal, moves all 4 limbs Psychiatric: A&O x 3 Dx/Plan (1) Acute respiratory failure with hypoxia Code(s): J96.01 - ACUTE RESPIRATORY FAILURE WITH HYPOXIA Status: Acute Comment: Followed by [facility]. extubated. Weaning as tolerated. Secondary to CHF and pneumonia. (2) Acute systolic heart failure Code(s): I50.21 - ACUTE SYSTOLIC (CONGESTIVE) HEART FAILURE Status: Acute Comment: Severe ischemic cardiomyopathy of LV with EF 20-25%. Moderate to severe MR. Cardiology following. (3) Atrial fibrillation with rapid ventricular response Code(s): I48.91 - UNSPECIFIED ATRIAL FIBRILLATION Status: Acute Comment: rate controlled (4) CAD (coronary artery disease) Code(s): I25.10 - ATHSCL HEART DISEASE OF [place] CORONARY ARTERY W/O ANG PCTRS Status: Acute Qualifiers: Coronary Disease-Associated Artery/Lesion type: [place] artery [place] vs. transplanted heart: [place] heart Associated angina: without angina Qualified Code(s): I25.10 - Atherosclerotic heart disease of [place] coronary artery without angina pectoris Comment: Hx of [place] with evidence of ischemic cardiomyopathy. (5) Cardiogenic shock Code(s): R57.0 - CARDIOGENIC SHOCK Status: Resolved Comment: Off pressors and maintaining better BP. (6) Cardiomyopathy Code(s): I42.9 - CARDIOMYOPATHY, UNSPECIFIED Status: Chronic Qualifiers: Cardiomyopathy type: ischemic Qualified Code(s): I25.5 - Ischemic cardiomyopathy Comment: EF 20-25%. Appears ischemic. Exacerbated by MR. (7) HTN (hypertension) Code(s): I10 - ESSENTIAL (PRIMARY) HYPERTENSION Status: Chronic Qualifiers: Hypertension type: essential hypertension Qualified Code(s): I10 - Essential (primary) hypertension (8) PNA (pneumonia) Code(s): J18.9 - PNEUMONIA, UNSPECIFIED ORGANISM Status: Acute Qualifiers: Pneumonia type: due to unspecified organism Laterality: bilateral Comment: Continue Levaquin. Persistent infiltrates on CXR. - Plan got extubated this am, is on high flow oxygen -: is currently tachypneic, watch for resp depression/exhaustion -: daughter at bedside, will decide if she will be dnar or if need araises to -: -re-intubate, continue amiodarone tid, lasix bid, levaquin -: lopressor, losartan and crestor, cath if stable on wednesday * . echo shows ef of 20%. Review of Systems - Medications/Allergies Allergies/Adverse Reactions: Allergies Allergy/AdvReac Type Severity Reaction Status Date / Time clindamycin Allergy Verified 04/13/18 13:19 lisinopril Allergy Verified 04/13/18 13:19 methotrexate Allergy Verified 04/13/18 13:19 penicillin G Allergy Verified 04/13/18 13:19 Medications: Current Medications Acetaminophen (Tylenol) 650 mg PO Q4H PRN PRN Reason: Headache/Fever/Mild Pain (1-3) Last Admin: 04/19/18 23:50 Dose: 650 mg Albuterol/Ipratropium (Duoneb) 3 ml NEB [id number] [facility] Last Admin: 04/21/18 12:32 Dose: 3 ml Amiodarone HCl (Cordarone) 200 mg PO TID [facility] Last Admin: 04/21/18 07:25 Dose: 200 mg Lipase/Protease/Amylase ([place] [id number]) 1 cap FS .PER PROTOCOL PRN PRN Reason: TUBE OCCLUSION PROTOCOL Aspirin (Aspirin Chewable) 81 mg PO MWF@0900 [facility] Carvedilol (Coreg) 3.125 mg PO BID-WM [facility] Docusate Sodium (Colace Liquid) 100 mg PO BID [facility] Last Admin: 04/21/18 09:18 Dose: Not Given Fentanyl (Duragesic) 50 mcg TD Q3D [facility] Last Admin: 04/20/18 17:10 Dose: 50 mcg Levofloxacin 750 mg/ Device 150 mls @ 100 mls/hr IVPB 0800 [facility] Last Admin: 04/21/18 08:32 Dose: 150 mls Fentanyl Citrate 2,000 mcg/ (Sodium Chloride) 100 mls @ 0 mls/hr IV INF [facility]; Protocol Stop: 05/15/18 16:49 Last Admin: 04/17/18 16:28 Dose: 100 mls Losartan Potassium (Cozaar) 50 mg PO DAILY [facility] Last Admin: 04/21/18 07:23 Dose: 50 mg Methylprednisolone Sodium Succinate (Solu-Medrol) 40 mg IVP DAILY [facility] Last Admin: 04/21/18 09:55 Dose: 40 mg Methylprednisolone Sodium Succinate (Solu-Medrol) 40 mg IVP Q6HR [facility] Morphine Sulfate (Morphine) 4 mg SLOW IVP Q2H PRN PRN Reason: Congestion Discontinue Previous Narcotic Pain Medications And Benzodiazepines 1 each FS .ONE [facility] Stop: 05/15/18 16:49 Ondansetron HCl (Zofran) 4 mg IVP Q6H PRN PRN Reason: Nausea/Vomiting Polyethylene Glycol (Miralax) 17 gm PER TUBE DAILY [facility] Last Admin: 04/21/18 07:25 Dose: 17 gm Rosuvastatin Calcium (Crestor) 20 mg PO DAILY [facility] Last Admin: 04/21/18 07:22 Dose: 20 mg Sertraline HCl (Zoloft) 50 mg PO DAILY [facility] Last Admin: 04/21/18 07:23 Dose: 50 mg Sodium Bicarbonate (Bicarbonate, Sodium) 650 mg PER TUBE .PER PROTOCOL PRN PRN Reason: ENTERAL TUBE OCCLUSION Sodium Chloride (Flush - Normal Saline) 10 ml IVF Q12HR [facility] Last Admin: 04/21/18 10:55 Dose: 10 ml Sodium Chloride (Flush - Normal Saline) 10 ml IVF PRN PRN PRN Reason: Saline Flush
--- NOTE | 2018-04-21 13:18 | PRG ---
DATE OF SERVICE: 04/21/2018 SUBJECTIVE: [place] Self is awake and alert, writing notes. Vital signs are stable overnight, blood pressure 146/62, heart rate was in the 90s this morning, respiratory rate was in the teens, and her minute volume was 8 to 9 L per minute. She met criteria for weaning protocol. She did have a leak. Her cuff was deflated. OBJECTIVE: LUNGS: Remarkable for coarse equal breath sounds. HEART: Regular rhythm. ABDOMEN: Soft. EXTREMITIES: No clubbing, cyanosis, or edema. LABORATORY DATA: No hemoglobin done this morning. Electrolytes; sodium 135, potassium 4.5, chloride 100, bicarb 30, BUN 28 and creatinine 0.86. IMPRESSION: Respiratory failure, starting with pneumonia and then leading to congestive heart failure. Her significant other has an echocardiogram from home , which shows a normal ejection fraction, mild mitral regurgitation, and a cardiac cath report showing diffuse atherosclerotic disease, but it did not have any diagrams of any significant obstructions. It will be interesting to see what her echocardiogram looks like in 3 to 6 months. This was explained to her significant other. Chest radiograph continues to show increased interstitial markings, but these are slowly improving. I felt she was a candidate for extubation. This was done successfully. Initially, she was talking. She developed some stridor and some anxiety with that, so she has been given morphine and placed on BiPAP and looks much more comfortable. We will continue to monitor closely in the Critical Care Unit. She is also started on IV steroids . Critical care time is 35 minutes. Job ID: [id number] MTDD
[2018-04-21] MEDS: Carvedilol 3.125 MG TAB PO SCH ×2 (18:27→21:27)
--- NOTE | 2018-04-22 08:13 | RAD ---
CHEST ONE VIEW: History: Ventilated patient. Comparison: Prior day. FINDINGS: Small effusions. Mild edema. The central venous catheter is similar. Patient's nasogastric and enteri c tube has been removed. IMPRESSION: Interval extubation and removal of the enteric tube without complication. POS: TPC
[2018-04-22 08:24] LABS: #Monocytes 0.4 thou/uL (0.11-0.59); %Basophils 0.2 % (0.0-1.0); %Eosinophils 0.2 % (0.0-10.0); %Lymphocytes 6.7 % (21.0-51.0); %Monocytes 2.5 % (0.0-10.0); %Neutrophils 90.3 % (42.0-75.0); Hemoglobin 8.3 g/dL (12.0-16.0); Mean Corpuscular HGB CONC 30.5 g/dL (32.0-36.0); Mean Corpuscular Hemoglobin 26.9 pg (27.0-31.0); Mean Corpuscular Volume 88.3 fL (78.0-98.0); Mean Platelet Volume 7.9 fL (7.4-10.4); Platelet Count 334 thou/uL (130-400); RBC Distribution Width 15.7 % (11.5-14.5); Red Blood Cell (RBC) Count 3.07 mill/uL (4.20-5.40); White Blood Cell (WBC) Count 15.5 thou/uL (4.8-10.8)
[2018-04-22 08:49] LABS: Anion Gap 15 mmol/L (10-20); BUN (Urea Nitrogen) 18 mg/dL (9.8-20.1); Calc. Creatinine Clearance 97 mL/min (70-130); Carbon Dioxide 30 mmol/L (23-31); Chloride 100 mmol/L (98-107); Estimated GFR-MDRD Greater than 90; Glucose 151 mg/dL (80-115); Potassium 3.8 mmol/L (3.5-5.1); Sodium 141 mmol/L (136-145)
--- NOTE | 2018-04-22 09:09 | PRG ---
DATE OF SERVICE: 04/22/2018 SUBJECTIVE: Ms. Self is on the BiPAP. She is breathing okay with the BiPAP. She says she is not having trouble breathing and no chest pain. OBJECTIVE: VITAL SIGNS: Her blood pressure is 140/50, pulse is 100 in sinus rhythm and sinus tachycardia up to rate of 105. LUNGS: Clear. CARDIAC: She has tachycardic ar rest. ABDOMEN: Soft, nontender. EXTREMITIES: Warm. IMAGING STUDIES: The echocardiogram shows the left ventricular function is markedly improved with 50% to 55%, now only mild to moderate mitral regurgitation. It appears that the left ventricle was "stunned." ASSESSMENT: 1. Respiratory failure, improved. 2. Sinus tachycardia. 3. Atrial fibrillation, now in sinus rhythm maintaining that she is on oral amiodarone 200 mg three times a day. 4. Chest x-ray shows interstitial infiltrates. PLAN: 1. Resume furosemide 20 mg daily. 2. We would ask for CBC and basic metabolic profile to be drawn. 3. Still remains critically ill, but has improved to some degree. I discussed with her significant other. Job ID: [id number]
[2018-04-22] MEDS: Losartan 25 MG TAB PO SCH (10:23)
[2018-04-22] MEDS: Furosemide 20 MG/2 ML VIAL SLOW IVP SCH (10:24)
[2018-04-22] MEDS: Carvedilol 3.125 MG TAB PO SCH ×2 (10:26→17:23)
[2018-04-22] MEDS: Amiodarone 200 MG TAB PO SCH ×3 (10:31→21:46)
[2018-04-22] MEDS: Docusate Sodium 100 MG/10 ML UDCUP PO SCH ×2 (14:27→21:46)
--- NOTE | 2018-04-22 16:40 | PRG ---
DATE OF SERVICE: 04/22/2018 SUBJECTIVE: [place] Self looks 100% better than she looked yesterday. She no longer has any respiratory distress. She is comfortable with high-flow cannula. We are weaning her towards the nasal cannula. OBJECTIVE: VITAL SIGNS: Heart rate of 87, respiratory rate 14, oximetry 99, blood pressure 143/64. LUNGS: Clear. HEART: Regular rhythm. ABDOMEN: Soft. IMAGING DATA: Chest radiograph shows mild interstitial markings on both sides. Echocardiogram surprisingly shows significant improvement in her ejection fraction and mitral regurgitation. IMPRESSION: 1. Pneumonia. 2. Myocardial dysfunction secondary to her systemic inflammatory response. 3. Anemia secondary to blood draws. 4. Probable combination of congestive heart failure, acute respiratory distress syndrome, and alveolar hemorrhage that is resolving. 5. Postextubation of mild stridor most likely secondary to vocal cord edema. She did have a leak prior to extubation, but also was trying to talk the entire time she was intubated. We will end up decreasing her steroids tomorrow. She will remain in critical care unit for now. We will see how she does overnight. We might consider moving her to a medical bed tomorrow if she has a good night. Job ID: [id number]
[2018-04-22] MEDS: Rosuvastatin 20 MG TAB PO SCH (17:28)
[2018-04-22] MEDS: Polyethylene Glycol 3350 17 GM Packet PER TUBE SCH (17:28)
--- NOTE | 2018-04-22 17:37 | PDOC.PN ---
- Subjective Encounter Start Date: 04/22/18 Encounter Start Time: 07:45 Subjective: awake, no sob, feels better, not anxious -: her partner at bedside -: is on high flow oxygen and resp rate looks good - Objective Resuscitation Status - Order Detail: 04/13/18 11:49 Resuscitation Status Routine Resuscitation Status: FULL: Full Resuscitation MAR Reviewed: Yes Vital Signs & Weight: Vital Signs (12 hours) Temp Pulse Resp Pulse Ox 04/22/18 15:00 97.8 F 04/22/18 14:23 87 14 99 04/22/18 12:00 98.1 F 04/22/18 08:30 99 04/22/18 08:00 100 04/22/18 07:00 98.9 F 04/22/18 06:32 100 04/22/18 06:30 97 13 94 L Weight Admit Weight 171 lb 4.787 oz Weight 160 lb 7.944 oz Most Recent Monitor Data Heart Rate from ECG 87 NIBP 129/61 NIBP BP-Mean 83 Respiration from ECG 14 SpO2 100 I&O: 04/21/18 04/22/18 04/23/18 06:59 06:59 06:59 Intake Total 1681.7 408 1381 Output Total 510 1900 1025 Balance 1171.7 -1492 356 Result Diagrams: 04/22/18 08:10 04/22/18 08:10 Phys Exam - Physical Examination HEENT: PERRLA, sclera anicteric Neck: no JVD, supple Respiratory: no rales rhonchi+, rales+ Cardiovascular: RRR, no significant murmur Gastrointestinal: soft, non-tender, positive bowel sounds Musculoskeletal: no edema, pulses present Neurological: non-focal, moves all 4 limbs Psychiatric: normal affect, A&O x 3 Dx/Plan (1) Acute respiratory failure with hypoxia Code(s): J96.01 - ACUTE RESPIRATORY FAILURE WITH HYPOXIA Status: Acute Comment: Followed by [facility]. extubated. Secondary to CHF and pneumonia. (2) Acute systolic heart failure Code(s): I50.21 - ACUTE SYSTOLIC (CONGESTIVE) HEART FAILURE Status: Acute Comment: initial EF 20-25% on 04/13, repeat echo 04/21 shows ef of 50% (3) Atrial fibrillation with rapid ventricular response Code(s): I48.91 - UNSPECIFIED ATRIAL FIBRILLATION Status: Acute Comment: rate controlled (4) CAD (coronary artery disease) Code(s): I25.10 - ATHSCL HEART DISEASE OF [place] CORONARY ARTERY W/O ANG PCTRS Status: Acute Qualifiers: Coronary Disease-Associated Artery/Lesion type: [place] artery [place] vs. transplanted heart: [place] heart Associated angina: without angina Qualified Code(s): I25.10 - Atherosclerotic heart disease of [place] coronary artery without angina pectoris Comment: Hx of [place] with evidence of ischemic cardiomyopathy. (5) Cardiogenic shock Code(s): R57.0 - CARDIOGENIC SHOCK Status: Resolved Comment: Off pressors and maintaining better BP. (6) Cardiomyopathy Code(s): I42.9 - CARDIOMYOPATHY, UNSPECIFIED Status: Chronic Qualifiers: Cardiomyopathy type: ischemic Qualified Code(s): I25.5 - Ischemic cardiomyopathy (7) HTN (hypertension) Code(s): I10 - ESSENTIAL (PRIMARY) HYPERTENSION Status: Chronic Qualifiers: Hypertension type: essential hypertension Qualified Code(s): I10 - Essential (primary) hypertension (8) PNA (pneumonia) Code(s): J18.9 - PNEUMONIA, UNSPECIFIED ORGANISM Status: Acute Qualifiers: Pneumonia type: due to unspecified organism Laterality: bilateral - Plan on amiodarone, asp, coreg, cozaar, crestor -: steroids iv, off levaquin -: responded well to bipap post extubation now on high flow tapering -: has clinically improved, ate her breakfast -: PT to mobilize as tolerated, No anticoag due to suspicion of possible pulm * . -hemorrhage/ards. Review of Systems - Medications/Allergies Allergies/Adverse Reactions: Allergies Allergy/AdvReac Type Severity Reaction Status Date / Time clindamycin Allergy Verified 04/13/18 13:19 lisinopril Allergy Verified 04/13/18 13:19 methotrexate Allergy Verified 04/13/18 13:19 penicillin G Allergy Verified 04/13/18 13:19 Medications: Current Medications Acetaminophen (Tylenol) 650 mg PO Q4H PRN PRN Reason: Headache/Fever/Mild Pain (1-3) Last Admin: 04/19/18 23:50 Dose: 650 mg Albuterol/Ipratropium (Duoneb) 3 ml NEB [id number] Last Admin: 04/22/18 14:23 Dose: 3 ml Amiodarone HCl (Cordarone) 200 mg PO TID [facility] Last Admin: 04/22/18 17:09 Dose: 200 mg Lipase/Protease/Amylase ([place] [id number]) 1 cap FS .PER PROTOCOL PRN PRN Reason: TUBE OCCLUSION PROTOCOL Aspirin (Aspirin Chewable) 81 mg PO MWF@0900 [facility] Last Admin: 04/22/18 10:31 Dose: 81 mg Carvedilol (Coreg) 6.25 mg PO BID-WM [facility] Last Admin: 04/22/18 17:23 Dose: 6.25 mg Docusate Sodium (Colace Liquid) 100 mg PO BID [facility] Last Admin: 04/22/18 14:27 Dose: 100 mg Fentanyl (Duragesic) 50 mcg TD Q3D [facility] Last Admin: 04/20/18 17:10 Dose: 50 mcg Furosemide (Lasix) 20 mg SLOW IVP DAILY [facility] Last Admin: 04/22/18 10:24 Dose: 20 mg Levofloxacin 750 mg/ Device 150 mls @ 100 mls/hr IVPB 0800 [facility] Last Admin: 04/22/18 10:27 Dose: 150 mls Losartan Potassium (Cozaar) 50 mg PO DAILY [facility] Last Admin: 04/22/18 10:23 Dose: 50 mg Methylprednisolone Sodium Succinate (Solu-Medrol) 40 mg IVP Q6HR [facility] Last Admin: 04/22/18 17:31 Dose: 40 mg Morphine Sulfate (Morphine) 4 mg SLOW IVP Q2H PRN PRN Reason: Congestion Discontinue Previous Narcotic Pain Medications And Benzodiazepines 1 each FS .ONE [facility] Stop: 05/15/18 16:49 Ondansetron HCl (Zofran) 4 mg IVP Q6H PRN PRN Reason: Nausea/Vomiting Polyethylene Glycol (Miralax) 17 gm PER TUBE DAILY [facility] Last Admin: 04/22/18 17:28 Dose: 17 gm Rosuvastatin Calcium (Crestor) 20 mg PO DAILY [facility] Last Admin: 04/22/18 17:28 Dose: 20 mg Sertraline HCl (Zoloft) 50 mg PO DAILY [facility] Last Admin: 04/22/18 14:28 Dose: 50 mg Sodium Bicarbonate (Bicarbonate, Sodium) 650 mg PER TUBE .PER PROTOCOL PRN PRN Reason: ENTERAL TUBE OCCLUSION Sodium Chloride (Flush - Normal Saline) 10 ml IVF Q12HR [facility] Last Admin: 12/14/18 14:28 Dose: 10 ml Sodium Chloride (Flush - Normal Saline) 10 ml IVF PRN PRN PRN Reason: Saline Flush
[2018-04-23] MEDS: Amiodarone 200 MG TAB PO SCH ×3 (08:36→21:15)
[2018-04-23] MEDS: Furosemide 20 MG/2 ML VIAL SLOW IVP SCH (08:36)
[2018-04-23] MEDS: Rosuvastatin 20 MG TAB PO SCH (08:36)
[2018-04-23] MEDS: Carvedilol 3.125 MG TAB PO SCH ×2 (08:36→17:34)
[2018-04-23] MEDS: Losartan 25 MG TAB PO SCH (08:36)
[2018-04-23] MEDS: Polyethylene Glycol 3350 17 GM Packet PER TUBE SCH (08:38)
[2018-04-23] MEDS: Docusate Sodium 100 MG/10 ML UDCUP PO SCH ×2 (08:53→21:16)
--- NOTE | 2018-04-23 09:04 | RAD ---
RADIOGRAPH CHEST 1 VIEW: Date: 04/23/18 Time: 0526 hours HISTORY: 67-year-old female for follow-up abnormal chest radiograph. COMPARISON: 04/22/18 at 0512 hours. FINDINGS: Left subclavian central vascular catheter remains. Diffuse bilateral mixed interstitial and alveolar infiltrates remain. No pneumothorax. No interval change overall. IMPRESSION: 1. Diffuse bilateral mixed interstitial and alveolar infiltrates. 2. No interval change. GUTIERREZ [] POS: AMELIA
[2018-04-23] MEDS ORDERED: Sodium Chloride 0.65% Nasal 44 ML BOT EA NARE PRN (10:26)
--- NOTE | 2018-04-23 12:25 | PDOC.PN ---
- Subjective Encounter Start Date: 04/23/18 Encounter Start Time: 07:50 Subjective: awake, is on nasal canula -: comfortable with no sob, feels better -: is eating better now, partner at bedside - Objective Resuscitation Status - Order Detail: 04/13/18 11:49 Resuscitation Status Routine Resuscitation Status: FULL: Full Resuscitation MAR Reviewed: Yes Vital Signs & Weight: Vital Signs (12 hours) Temp Pulse Resp Pulse Ox 04/23/18 12:00 98.6 F 04/23/18 08:00 98.4 F 97 04/23/18 07:39 89 14 98 Weight Admit Weight 171 lb 4.787 oz Weight 160 lb Most Recent Monitor Data Heart Rate from ECG 85 NIBP 136/56 NIBP BP-Mean 82 Respiration from ECG 23 SpO2 95 I&O: 04/22/18 04/23/18 04/24/18 06:59 06:59 06:59 Intake Total 408 1381 460 Output Total 1900 1735 300 Balance -1492 -354 160 Result Diagrams: 04/22/18 08:10 04/22/18 08:10 Phys Exam - Physical Examination HEENT: PERRLA, moist MMs Neck: no JVD, supple Respiratory: no wheezing rales+ Cardiovascular: no significant murmur, irregular Gastrointestinal: soft, non-tender, no distention, positive bowel sounds Musculoskeletal: no edema, pulses present Neurological: non-focal, moves all 4 limbs Psychiatric: normal affect, A&O x 3 Dx/Plan (1) Acute respiratory failure with hypoxia Code(s): J96.01 - ACUTE RESPIRATORY FAILURE WITH HYPOXIA Status: Acute Comment: Followed by [facility]. extubated. Secondary to CHF and pneumonia. (2) Acute systolic heart failure Code(s): I50.21 - ACUTE SYSTOLIC (CONGESTIVE) HEART FAILURE Status: Acute Comment: initial EF 20-25% on 04/13, repeat echo 04/21 shows ef of 50% (3) Atrial fibrillation with rapid ventricular response Code(s): I48.91 - UNSPECIFIED ATRIAL FIBRILLATION Status: Acute Comment: rate controlled (4) CAD (coronary artery disease) Code(s): I25.10 - ATHSCL HEART DISEASE OF [place] CORONARY ARTERY W/O ANG PCTRS Status: Acute Qualifiers: Coronary Disease-Associated Artery/Lesion type: [place] artery [place] vs. transplanted heart: [place] heart Associated angina: without angina Qualified Code(s): I25.10 - Atherosclerotic heart disease of [place] coronary artery without angina pectoris Comment: Hx of [place] with evidence of ischemic cardiomyopathy. (5) Cardiogenic shock Code(s): R57.0 - CARDIOGENIC SHOCK Status: Resolved Comment: Off pressors and maintaining better BP. (6) Cardiomyopathy Code(s): I42.9 - CARDIOMYOPATHY, UNSPECIFIED Status: Chronic Qualifiers: Cardiomyopathy type: ischemic Qualified Code(s): I25.5 - Ischemic cardiomyopathy (7) HTN (hypertension) Code(s): I10 - ESSENTIAL (PRIMARY) HYPERTENSION Status: Chronic Qualifiers: Hypertension type: essential hypertension Qualified Code(s): I10 - Essential (primary) hypertension (8) PNA (pneumonia) Code(s): J18.9 - PNEUMONIA, UNSPECIFIED ORGANISM Status: Acute Qualifiers: Pneumonia type: due to unspecified organism Laterality: bilateral - Plan clinically is getting better and is off high flow now -: encourage po intake -: PT to mobilize as tolerated -: continue asp, amiodarone, coreg, cozaar, lasix iv daily -: nebs, steroids and levaquin * . Review of Systems - Medications/Allergies Allergies/Adverse Reactions: Allergies Allergy/AdvReac Type Severity Reaction Status Date / Time clindamycin Allergy Verified 04/13/18 13:19 lisinopril Allergy Verified 04/13/18 13:19 methotrexate Allergy Verified 04/13/18 13:19 penicillin G Allergy Verified 04/13/18 13:19 Medications: Current Medications Acetaminophen (Tylenol) 650 mg PO Q4H PRN PRN Reason: Headache/Fever/Mild Pain (1-3) Last Admin: 04/19/18 23:50 Dose: 650 mg Albuterol/Ipratropium (Duoneb) 3 ml NEB [id number] [facility] Last Admin: 04/23/18 07:39 Dose: 3 ml Amiodarone HCl (Cordarone) 200 mg PO TID [facility] Last Admin: 04/23/18 08:36 Dose: 200 mg Lipase/Protease/Amylase ([place] [id number]) 1 cap FS .PER PROTOCOL PRN PRN Reason: TUBE OCCLUSION PROTOCOL Aspirin (Aspirin Chewable) 81 mg PO MWF@0900 [facility] Last Admin: 04/22/18 10:31 Dose: 81 mg Carvedilol (Coreg) 6.25 mg PO BID-[facility] Last Admin: 04/23/18 08:36 Dose: 6.25 mg Docusate Sodium (Colace Liquid) 100 mg PO BID [facility] Last Admin: 04/23/18 08:53 Dose: Not Given Fentanyl (Duragesic) 25 mcg TD Q3D@1300 [facility] Furosemide (Lasix) 20 mg SLOW IVP DAILY [facility] Last Admin: 04/23/18 08:36 Dose: 20 mg Levofloxacin 750 mg/ Device 150 mls @ 100 mls/hr IVPB 0800 [facility] Last Admin: 04/23/18 09:11 Dose: 150 mls Losartan Potassium (Cozaar) 50 mg PO DAILY [facility] Last Admin: 04/23/18 08:36 Dose: 50 mg Methylprednisolone Sodium Succinate (Solu-Medrol) 40 mg IVP Q6HR [facility] Last Admin: 04/23/18 12:14 Dose: 40 mg Morphine Sulfate (Morphine) 4 mg SLOW IVP Q2H PRN PRN Reason: Congestion Discontinue Previous Narcotic Pain Medications And Benzodiazepines 1 each FS .ONE [facility] Stop: 05/15/18 16:49 Ondansetron HCl (Zofran) 4 mg IVP Q6H PRN PRN Reason: Nausea/Vomiting Polyethylene Glycol (Miralax) 17 gm PER TUBE DAILY [facility] Last Admin: 04/23/18 08:38 Dose: Not Given Rosuvastatin Calcium (Crestor) 20 mg PO DAILY [facility] Last Admin: 04/23/18 08:36 Dose: 20 mg Sertraline HCl (Zoloft) 50 mg PO DAILY [facility] Last Admin: 04/23/18 08:36 Dose: 50 mg Sodium Bicarbonate (Bicarbonate, Sodium) 650 mg PER TUBE .PER PROTOCOL PRN PRN Reason: ENTERAL TUBE OCCLUSION Sodium Chloride (Flush - Normal Saline) 10 ml IVF Q12HR [facility] Last Admin: 04/23/18 08:37 Dose: 10 ml Sodium Chloride (Flush - Normal Saline) 10 ml IVF PRN PRN PRN Reason: Saline Flush Last Admin: 04/23/18 12:14 Dose: 10 ml Sodium Chloride ([place] Nasal [place] 0.65%) 0 ml EA NARE Q1H PRN PRN Reason: Nasal Dryness Last Admin: 04/23/18 12:15 Dose: 2 spr Tramadol HCl (Ultram) 50 mg PO Q6HR [facility]
[2018-04-23] MEDS: traMADol HCl 50 MG TAB PO SCH ×3 (12:46→23:44)
[2018-04-23 13:50] LABS: Anion Gap 16 mmol/L (10-20); BUN (Urea Nitrogen) 21 mg/dL (9.8-20.1); Calc. Creatinine Clearance 86 mL/min (70-130); Calcium 8.3 mg/dL (7.8-10.44); Carbon Dioxide 29 mmol/L (23-31); Chloride 94 mmol/L (98-107); Estimated GFR-MDRD 82; Glucose 237 mg/dL (80-115); HIV (1/2) Antibody/Antigen Non-Reactive (NonReactive); HIV 1/2 INDEX 0.14 S/CO (<1.00); Potassium 3.4 mmol/L (3.5-5.1); Sodium 136 mmol/L (136-145)
--- NOTE | 2018-04-23 16:56 | PRG ---
DATE OF SERVICE: SUBJECTIVE: Ms. Self did well overnight. She is sitting up in a chair. When I saw, she is on 2 L nasal cannula. She dropped to 88 on room air. She was placed on 1 L nasal cannula, which has her at 92%. OBJECTIVE: VITAL SIGNS: Stable. Heart rate is 77. She is afebrile. Respiratory rate is 20, temperature is 95 on 1 L now, blood pressure 142/63. LUNGS: Clear. HEART: Regular rhythm. ABDOMEN: Soft. EXTREMITIES: No clubbing, cyanosis, or edema. IMPRESSION: 1. Pneumonia. 2. Transient congestive heart failure. 3. Status post mechanical ventilation. 4. Chronic pain. PLAN: I have plan to decrease her fentanyl and get her on tramadol. We had a long discussion about the downside of being on morphine. She will transfer out of the Critical Care Unit. She is on p.o. antimicrobial therapy. She will be switched to p.o. steroids. We will continue with Physical Therapy. Hopefully, she will be able to travel back to [place] 1 day in next week. Job ID: [id number] MTDD
[2018-04-24] MEDS: traMADol HCl 50 MG TAB PO SCH ×3 (05:20→17:25)
[2018-04-24 06:14] LABS: Anion Gap 9 mmol/L (10-20); BUN (Urea Nitrogen) 19 mg/dL (9.8-20.1); Calc. Creatinine Clearance 95 mL/min (70-130); Calcium 8.3 mg/dL (7.8-10.44); Carbon Dioxide 35 mmol/L (23-31); Chloride 93 mmol/L (98-107); Estimated GFR-MDRD Greater than 90; Glucose 147 mg/dL (80-115); Potassium 3.4 mmol/L (3.5-5.1); Sodium 134 mmol/L (136-145)
[2018-04-24] MEDS: Carvedilol 3.125 MG TAB PO SCH ×2 (08:32→17:25)
[2018-04-24] MEDS: predniSONE 20 MG TAB PO SCH (08:33)
[2018-04-24] MEDS: Enoxaparin Sodium 30 MG/0.3 ML SYRINGE SC SCH (08:34)
[2018-04-24] MEDS: Docusate Sodium 100 MG/10 ML UDCUP PO SCH ×2 (08:34→20:29)
[2018-04-24] MEDS: Amiodarone 200 MG TAB PO SCH ×3 (08:34→20:29)
[2018-04-24] MEDS: Furosemide 20 MG/2 ML VIAL SLOW IVP SCH (08:35)
[2018-04-24] MEDS: Losartan 25 MG TAB PO SCH (08:35)
[2018-04-24] MEDS: Rosuvastatin 20 MG TAB PO SCH (08:36)
[2018-04-24] MEDS: Polyethylene Glycol 3350 17 GM Packet PER TUBE SCH (08:36)
[2018-04-24] MEDS ORDERED: Nitroglycerin 2% Ointment 1 INCH/1 GM Packet ONE (12:20)
--- NOTE | 2018-04-24 12:32 | PDOC.PN ---
- Subjective Encounter Start Date: 04/24/18 Encounter Start Time: 11:15 Subjective: no sob, sitting in chair, feels better -: is on nasal canula oxygen - Objective Resuscitation Status - Order Detail: 04/13/18 11:49 Resuscitation Status Routine Resuscitation Status: FULL: Full Resuscitation MAR Reviewed: Yes Vital Signs & Weight: Vital Signs (12 hours) Temp Pulse Resp BP BP Pulse Ox 04/24/18 12:22 68 18 142/66 H 04/24/18 08:30 97.9 F 84 18 138/64 18 L 04/24/18 08:00 91 L 04/24/18 06:28 90 L 04/24/18 06:25 79 18 04/24/18 03:54 97.7 F 80 12 165/72 H 93 L 04/24/18 00:52 84 16 93 L Weight Admit Weight 171 lb 4.787 oz Weight 168 lb 5 oz Most Recent Monitor Data Heart Rate from ECG 79 NIBP 134/60 NIBP BP-Mean 84 Respiration from ECG 18 SpO2 96 I&O: 04/23/18 04/24/18 04/25/18 06:59 06:59 06:59 Intake Total 1381 1170 Output Total 1735 1050 Balance -354 120 Result Diagrams: 04/22/18 08:10 04/24/18 05:00 Phys Exam - Physical Examination HEENT: PERRLA, moist MMs Neck: no JVD, supple Respiratory: no wheezing rales+ Cardiovascular: no significant murmur, no rub Gastrointestinal: soft, no distention, positive bowel sounds Musculoskeletal: no edema, pulses present Neurological: non-focal, moves all 4 limbs Psychiatric: normal affect, A&O x 3 Dx/Plan (1) PNA (pneumonia) Code(s): J18.9 - PNEUMONIA, UNSPECIFIED ORGANISM Status: Acute Qualifiers: Pneumonia type: due to unspecified organism Laterality: bilateral (2) Acute respiratory failure with hypoxia Code(s): J96.01 - ACUTE RESPIRATORY FAILURE WITH HYPOXIA Status: Acute Comment: Followed by [facility]. extubated. Secondary to CHF and pneumonia. (3) Acute systolic heart failure Code(s): I50.21 - ACUTE SYSTOLIC (CONGESTIVE) HEART FAILURE Status: Acute Comment: initial EF 20-25% on 04/13, repeat echo 04/21 shows ef of 50% (4) Atrial fibrillation with rapid ventricular response Code(s): I48.91 - UNSPECIFIED ATRIAL FIBRILLATION Status: Acute Comment: rate controlled (5) CAD (coronary artery disease) Code(s): I25.10 - ATHSCL HEART DISEASE OF [place] CORONARY ARTERY W/O ANG PCTRS Status: Acute Qualifiers: Coronary Disease-Associated Artery/Lesion type: [place] artery [place] vs. transplanted heart: [place] heart Associated angina: without angina Qualified Code(s): I25.10 - Atherosclerotic heart disease of [place] coronary artery without angina pectoris Comment: Hx of [place] with evidence of ischemic cardiomyopathy. (6) Cardiogenic shock Code(s): R57.0 - CARDIOGENIC SHOCK Status: Resolved Comment: Off pressors and maintaining better BP. (7) HTN (hypertension) Code(s): I10 - ESSENTIAL (PRIMARY) HYPERTENSION Status: Chronic Qualifiers: Hypertension type: essential hypertension Qualified Code(s): I10 - Essential (primary) hypertension - Plan is slowly progressing well, PT to ambulate pt today -: dc plan depends on her mobility -: is on steroids, nebs, levaquin -: asp, amiodarone, coreg, crestor and iv lasix daily -: hemostable, fentanyl tts low dose * . Review of Systems - Medications/Allergies Allergies/Adverse Reactions: Allergies Allergy/AdvReac Type Severity Reaction Status Date / Time clindamycin Allergy Verified 04/13/18 13:19 lisinopril Allergy Verified 04/13/18 13:19 methotrexate Allergy Verified 04/13/18 13:19 penicillin G Allergy Verified 04/13/18 13:19 Medications: Current Medications Acetaminophen (Tylenol) 650 mg PO Q4H PRN PRN Reason: Headache/Fever/Mild Pain (1-3) Last Admin: 04/19/18 23:50 Dose: 650 mg Albuterol/Ipratropium (Duoneb) 3 ml NEB [id number] [facility] Last Admin: 04/24/18 06:25 Dose: 3 ml Amiodarone HCl (Cordarone) 200 mg PO TID [facility] Last Admin: 04/24/18 08:34 Dose: 200 mg Lipase/Protease/Amylase ([place] [id number]) 1 cap FS .PER PROTOCOL PRN PRN Reason: TUBE OCCLUSION PROTOCOL Aspirin (Aspirin Chewable) 81 mg PO MWF@0900 [facility] Last Admin: 04/22/18 10:31 Dose: 81 mg Carvedilol (Coreg) 6.25 mg PO BID-[facility] Last Admin: 04/24/18 08:32 Dose: 6.25 mg Docusate Sodium (Colace Liquid) 100 mg PO BID [facility] Last Admin: 04/24/18 08:34 Dose: Not Given Enoxaparin Sodium (Lovenox) 30 mg SC 0900 [facility] Last Admin: 04/24/18 08:34 Dose: 30 mg Fentanyl (Duragesic) 25 mcg TD Q3D@1300 [facility] Last Admin: 04/23/18 12:44 Dose: 25 mcg Furosemide (Lasix) 20 mg SLOW IVP DAILY [facility] Last Admin: 04/24/18 08:35 Dose: 20 mg Levofloxacin 750 mg/ Device 150 mls @ 100 mls/hr IVPB 0800 [facility] Last Admin: 04/24/18 08:32 Dose: 150 mls Losartan Potassium (Cozaar) 50 mg PO DAILY [facility] Last Admin: 04/24/18 08:35 Dose: 50 mg Morphine Sulfate (Morphine) 4 mg SLOW IVP Q2H PRN PRN Reason: Congestion Discontinue Previous Narcotic Pain Medications And Benzodiazepines 1 each FS .ONE [facility] Stop: 05/15/18 16:49 Ondansetron HCl (Zofran) 4 mg IVP Q6H PRN PRN Reason: Nausea/Vomiting Polyethylene Glycol (Miralax) 17 gm PER TUBE DAILY [facility] Last Admin: 04/24/18 08:36 Dose: Not Given Potassium [facility] Last Admin: 04/24/18 08:33 Dose: 40 mg Rosuvastatin Calcium (Crestor) 20 mg PO DAILY [facility] Last Admin: 04/24/18 08:36 Dose: 20 mg Sertraline HCl (Zoloft) 50 mg PO DAILY [facility] Last Admin: 04/24/18 08:36 Dose: 50 mg Sodium Bicarbonate (Bicarbonate, Sodium) 650 mg PER TUBE .PER PROTOCOL PRN PRN Reason: ENTERAL TUBE OCCLUSION Sodium Chloride (Flush - Normal Saline) 10 ml IVF Q12HR [facility] Last Admin: 04/24/18 08:37 Dose: 10 ml Sodium Chloride (Flush - Normal Saline) 10 ml IVF PRN PRN PRN Reason: Saline Flush Last Admin: 04/23/18 12:14 Dose: 10 ml Sodium Chloride ([place] Nasal [place] 0.65%) 0 ml EA NARE Q1H PRN PRN Reason: Nasal Dryness Last Admin: 04/23/18 12:15 Dose: 2 spr Tramadol HCl (Ultram) 50 mg PO Q6HR [facility] Last Admin: 04/24/18 11:16 Dose: 50 mg
--- NOTE | 2018-04-24 14:31 | PRG ---
DATE OF SERVICE: 04/24/2018 SUBJECTIVE: [place] Self was sitting at the bedside chair. She had been up for 3 hours. She has not walked in the [place] yet. Physical Therapy have not seen her yet as far as this morning. OBJECTIVE: VITAL SIGNS: Heart rate 74, respiratory rate 16, oximetry is 94% on 1.5 L, and blood pressure 141/63. LUNGS: Surprisingly clear. HEART: Regular rhythm. ABDOMEN: Soft. IMPRESSION: 1. Pneumonia. 2. Septic congestive heart failure. 3. Atrial fibrillation and she came in when she was acutely ill. 4. She is still in sinus rhythm, on amiodarone. 5. Chronic morphine use, doing well with tramadol and baby dose of fentanyl. Hopefully, we can discontinue the fentanyl here in the next few days. Hopefully , she will be weaned to room air. Once she is on room air, she can be discharged to drive back to [place]. I think she is close. Job ID: [id number] MTDD
[2018-04-24] MEDS ORDERED: Furosemide 20 MG/2 ML VIAL SLOW IVP SCH (15:00)
[2018-04-24] MEDS ORDERED: Clopidogrel Bisulfate 300 MG TAB PO SCH (15:00)
[2018-04-24] MEDS: Potassium Chloride 20 MEQ TAB PO SCH (17:25)
[2018-04-25] MEDS: traMADol HCl 50 MG TAB PO SCH ×4 (00:53→17:17)
[2018-04-25 06:06] LABS: #Basophils 0.1 thou/uL (0.0-0.2); #Eosinphils 0.1 thou/uL (0.0-0.7); #Lymphocytes 2.4 thou/uL (1.20-3.40); #Monocytes 1.2 thou/uL (0.11-0.59); #Neutrophils 8.4 thou/uL (1.40-6.50); %Basophils 0.5 % (0.0-1.0); %Eosinophils 0.9 % (0.0-10.0); %Lymphocytes 19.9 % (21.0-51.0); %Monocytes 9.8 % (0.0-10.0); %Neutrophils 68.9 % (42.0-75.0); Hemoglobin 8.9 g/dL (12.0-16.0); Mean Corpuscular HGB CONC 32.4 g/dL (32.0-36.0); Mean Corpuscular Hemoglobin 27.9 pg (27.0-31.0); Mean Corpuscular Volume 86.1 fL (78.0-98.0); Mean Platelet Volume 7.2 fL (7.4-10.4); Platelet Count 445 thou/uL (130-400); RBC Distribution Width 15.6 % (11.5-14.5); Red Blood Cell (RBC) Count 3.17 mill/uL (4.20-5.40); White Blood Cell (WBC) Count 12.2 thou/uL (4.8-10.8)
--- NOTE | 2018-04-25 07:50 | PRG ---
DATE OF SERVICE: 04/23/2018 ADDENDUM: Other problems include a rectus sheath hematoma. It should be safe to start DVT prophylaxis in the morning. The other is atrial fibrillation, which is rate controlled. Her pain is actually surprisingly minimal. She has gone through the morphine withdrawal phase without any complications. Continue to decrease her fentanyl patch to get her just on tramadol when she goes home and maybe with some p.r.n. Tylenol No. 3. Job ID: [id number]
[2018-04-25] MEDS: Carvedilol 3.125 MG TAB PO SCH ×2 (08:20→17:16)
[2018-04-25] MEDS: Potassium Chloride 20 MEQ TAB PO SCH ×2 (08:22→18:16)
[2018-04-25] MEDS: Amiodarone 200 MG TAB PO SCH ×2 (08:23→20:16)
[2018-04-25] MEDS: predniSONE 20 MG TAB PO SCH (08:23)
[2018-04-25] MEDS: Clopidogrel Bisulfate 75 MG TAB PO SCH (08:24)
[2018-04-25] MEDS: Enoxaparin Sodium 30 MG/0.3 ML SYRINGE SC SCH (08:24)
[2018-04-25] MEDS: Losartan 25 MG TAB PO SCH (08:25)
[2018-04-25] MEDS: Furosemide 20 MG/2 ML VIAL SLOW IVP SCH (08:25)
[2018-04-25] MEDS: Rosuvastatin 20 MG TAB PO SCH (08:26)
[2018-04-25] MEDS: Polyethylene Glycol 3350 17 GM Packet PER TUBE SCH (08:26)
[2018-04-25] MEDS ORDERED: Docusate 100 MG CAP PO SCH (09:30)
[2018-04-25] MEDS: Docusate Sodium 100 MG/10 ML UDCUP PO SCH (09:36)
--- NOTE | 2018-04-25 12:04 | PDOC.PN ---
- Subjective Encounter Start Date: 04/25/18 Encounter Start Time: 11:00 Subjective: breathing better, no chest pain or palp -: is ambulating in room with rw, is off nasal canula -: walked 100ft with PT yesterday - Objective Resuscitation Status - Order Detail: 04/13/18 11:49 Resuscitation Status Routine Resuscitation Status: FULL: Full Resuscitation MAR Reviewed: Yes Vital Signs & Weight: Vital Signs (12 hours) Temp Pulse Resp BP Pulse Ox 04/25/18 11:58 97.9 F 70 18 131/62 93 L 04/25/18 08:00 93 L 04/25/18 07:57 98.2 F 73 20 154/67 H 93 L 04/25/18 06:36 94 L 04/25/18 06:35 68 16 94 L 04/25/18 04:19 98.1 F 72 16 140/66 92 L 04/25/18 01:35 76 16 04/25/18 00:45 98.1 F 73 18 135/62 92 L Weight Admit Weight 171 lb 4.787 oz Weight 166 lb 4 oz Most Recent Monitor Data Heart Rate from ECG 79 NIBP 134/60 NIBP BP-Mean 84 Respiration from ECG 18 SpO2 96 I&O: 04/24/18 04/25/18 04/26/18 06:59 06:59 06:59 Intake Total 1170 1090 Output Total 1050 1575 Balance 120 -485 Result Diagrams: 04/25/18 06:01 04/24/18 05:00 Phys Exam - Physical Examination HEENT: PERRLA, moist MMs Neck: no JVD, supple Respiratory: no wheezing rhonchi+ Cardiovascular: RRR, no significant murmur Gastrointestinal: soft, non-tender, positive bowel sounds Musculoskeletal: no edema, pulses present Neurological: non-focal, moves all 4 limbs Psychiatric: normal affect, A&O x 3 Dx/Plan (1) PNA (pneumonia) Code(s): J18.9 - PNEUMONIA, UNSPECIFIED ORGANISM Status: Acute Qualifiers: Pneumonia type: due to unspecified organism Laterality: bilateral (2) Acute respiratory failure with hypoxia Code(s): J96.01 - ACUTE RESPIRATORY FAILURE WITH HYPOXIA Status: Acute Comment: Followed by [facility]. extubated. Secondary to CHF and pneumonia. (3) Acute systolic heart failure Code(s): I50.21 - ACUTE SYSTOLIC (CONGESTIVE) HEART FAILURE Status: Acute Comment: initial EF 20-25% on 04/13, repeat echo 04/21 shows ef of 50% (4) Atrial fibrillation with rapid ventricular response Code(s): I48.91 - UNSPECIFIED ATRIAL FIBRILLATION Status: Acute Comment: rate controlled (5) CAD (coronary artery disease) Code(s): I25.10 - ATHSCL HEART DISEASE OF [place] CORONARY ARTERY W/O ANG PCTRS Status: Acute Qualifiers: Coronary Disease-Associated Artery/Lesion type: [place] artery [place] vs. transplanted heart: [place] heart Associated angina: without angina Qualified Code(s): I25.10 - Atherosclerotic heart disease of [place] coronary artery without angina pectoris Comment: Hx of [place] with evidence of ischemic cardiomyopathy. (6) Cardiogenic shock Code(s): R57.0 - CARDIOGENIC SHOCK Status: Resolved Comment: Off pressors and maintaining better BP. (7) HTN (hypertension) Code(s): I10 - ESSENTIAL (PRIMARY) HYPERTENSION Status: Chronic Qualifiers: Hypertension type: essential hypertension Qualified Code(s): I10 - Essential (primary) hypertension - Plan is recovering well -: to ambulate as tolerated -: nebs, steroids, asp, plavix, coreg, amiodarone -: lasix iv daily per cardio -: hemostable, likely dc plan in 24-36hrs if stable * . Review of Systems - Medications/Allergies Allergies/Adverse Reactions: Allergies Allergy/AdvReac Type Severity Reaction Status Date / Time clindamycin Allergy Verified 04/13/18 13:19 lisinopril Allergy Verified 04/13/18 13:19 methotrexate Allergy Verified 04/13/18 13:19 penicillin G Allergy Verified 04/13/18 13:19 Medications: Current Medications Acetaminophen (Tylenol) 650 mg PO Q4H PRN PRN Reason: Headache/Fever/Mild Pain (1-3) Last Admin: 04/19/18 23:50 Dose: 650 mg Albuterol/Ipratropium (Duoneb) 3 ml NEB [id number] Last Admin: 04/25/18 06:35 Dose: 3 ml Amiodarone HCl (Cordarone) 200 mg PO TID [facility] Last Admin: 04/25/18 08:23 Dose: 200 mg Lipase/Protease/Amylase ([place] [id number]) 1 cap FS .PER PROTOCOL PRN PRN Reason: TUBE OCCLUSION PROTOCOL Aspirin (Aspirin Chewable) 81 mg PO MWF@0900 [facility] Last Admin: 04/25/18 08:23 Dose: 81 mg Carvedilol (Coreg) 6.25 mg PO BID-[facility] Last Admin: 04/25/18 08:20 Dose: 6.25 mg Clopidogrel Bisulfate (Plavix) 75 mg PO DAILY [facility] Last Admin: 04/25/18 08:24 Dose: 75 mg Docusate Sodium (Colace) 100 mg PO BID [facility] Enoxaparin Sodium (Lovenox) 30 mg SC 0900 [facility] Last Admin: 04/25/18 08:24 Dose: 30 mg Fentanyl (Duragesic) 25 mcg TD Q3D@1300 [facility] Last Admin: 04/23/18 12:44 Dose: 25 mcg Furosemide (Lasix) 40 mg SLOW IVP DAILY [facility] Last Admin: 04/25/18 08:25 Dose: 40 mg Losartan Potassium (Cozaar) 50 mg PO DAILY [facility] Last Admin: 04/25/18 08:25 Dose: 50 mg Morphine Sulfate (Morphine) 4 mg SLOW IVP Q2H PRN PRN Reason: Congestion Discontinue Previous Narcotic Pain Medications And Benzodiazepines 1 each FS .ONE [facility] Stop: 05/15/18 16:49 Ondansetron HCl (Zofran) 4 mg IVP Q6H PRN PRN Reason: Nausea/Vomiting Polyethylene Glycol (Miralax) 17 gm PER TUBE DAILY [facility] Last Admin: 04/25/18 08:26 Dose: Not Given Potassium Chloride (K-Dur) 40 meq PO BID-[facility] Last Admin: 04/25/18 08:22 Dose: 40 meq Prednisone (Prednisone) 40 mg PO QAM-[facility] Last Admin: 04/25/18 08:23 Dose: 40 mg Prednisone (Prednisone) 20 mg PO QAM-[facility] Rosuvastatin Calcium (Crestor) 20 mg PO DAILY [facility] Last Admin: 04/25/18 08:26 Dose: 20 mg Sertraline HCl (Zoloft) 50 mg PO DAILY [facility] Last Admin: 04/25/18 08:26 Dose: 50 mg Sodium Bicarbonate (Bicarbonate, Sodium) 650 mg PER TUBE .PER PROTOCOL PRN PRN Reason: ENTERAL TUBE OCCLUSION Sodium Chloride (Flush - Normal Saline) 10 ml IVF Q12HR [facility] Last Admin: 04/25/18 09:36 Dose: 10 ml Sodium Chloride (Flush - Normal Saline) 10 ml IVF PRN PRN PRN Reason: Saline Flush Last Admin: 04/23/18 12:14 Dose: 10 ml Sodium Chloride ([place] Nasal [place] 0.65%) 0 ml EA NARE Q1H PRN PRN Reason: Nasal Dryness Last Admin: 04/23/18 12:15 Dose: 2 spr Tramadol HCl (Ultram) 50 mg PO Q6HR [facility] Last Admin: 04/25/18 11:27 Dose: 50 mg
--- NOTE | 2018-04-25 12:27 | PRG ---
DATE OF SERVICE: 04/25/2018 SUBJECTIVE: Ms. Self has walked 25 feet. She is on a liter and half nasal cannula, saturations are 93%. I discontinued her O2 and asked the nurse to come back and check her in about 30 minutes. If she is 90% saturated or higher, she can discontinue her oxygen. OBJECTIVE: VITAL SIGNS: She is afebrile, heart rate 70s, respiratory rate 20, and blood pressure 154/67. LUNGS: Clear. HEART: Regular rhythm. ABDOMEN: Soft and nontender. LABORATORY DATA: White count 12.2, hemoglobin 8.9, and platelets 445,000. IMPRESSION AND PLAN: 1. Pneumonia followed by congestive heart failure and a mixture of cardiogenic and noncardiogenic edema. 2. Mitral regurgitation. 3. Preserved left ventricular systolic function, on repeat echo. 4. Deconditioning. 5. Chronic opioid use, on 300 mg total morphine when she arrived. She is on 25 mcg patch of fentanyl and taking Ultram 4 times a day with adequate pain control. I have explained to both her and her significant other that, when she is able to ambulate from a car to a bathroom at a rest stop or car to a hotel room/motel room and her O2 saturation on room air is above 89%, she will be ready for discharge. She is progressing nicely with physical therapy. Her antibiotics can be discontinued. Her prednisone dose will be cut back to 20 mg a day. Hopefully, this will help facilitate muscle strengthening. Her only complaint is left lower extremity weakness, which I suspect is related to her back and the multiple areas of nerve compression that she has back there. This is the side, where she has had symptoms before. Job ID: [id number]
[2018-04-25 13:48] VITALS: BMI 26.8
[2018-04-25] MEDS: Docusate 100 MG CAP PO SCH (20:16)
[2018-04-26] MEDS: traMADol HCl 50 MG TAB PO SCH ×4 (00:04→17:28)
[2018-04-26] MEDS: Carvedilol 3.125 MG TAB PO SCH ×2 (08:07→17:27)
[2018-04-26] MEDS: predniSONE 20 MG TAB PO SCH (08:07)
[2018-04-26] MEDS: Losartan 25 MG TAB PO SCH (08:08)
[2018-04-26] MEDS: Rosuvastatin 20 MG TAB PO SCH (08:08)
[2018-04-26] MEDS: Potassium Chloride 20 MEQ TAB PO SCH ×2 (08:08→17:27)
[2018-04-26] MEDS: Clopidogrel Bisulfate 75 MG TAB PO SCH (08:09)
[2018-04-26] MEDS: Enoxaparin Sodium 30 MG/0.3 ML SYRINGE SC SCH (08:09)
[2018-04-26] MEDS: Amiodarone 200 MG TAB PO SCH ×2 (08:09→20:13)
[2018-04-26] MEDS: Docusate 100 MG CAP PO SCH ×2 (08:09→20:13)
[2018-04-26] MEDS: Furosemide 20 MG/2 ML VIAL SLOW IVP SCH (08:10)
[2018-04-26] MEDS: Polyethylene Glycol 3350 17 GM Packet PER TUBE SCH (08:15)
--- NOTE | 2018-04-26 11:01 | PQF ---
CLINICAL DOCUMENTATION IMPROVEMENT CLARIFICATION FORM: ICD-10 Updated PLEASE DO AN ADDENDUM TO THE PROGRESS NOTE WITH ANY DOCUMENTATION UPDATES OR ADDITIONS AND CARRY THROUGH TO DC SUMMARY. THANK YOU. DATE: 04/26/18 ATTN: Dr. Ferris Please exercise your independent, professional judgment in responding to the clarification form. Clinical indicators are provided on the bottom of this form for your review Please check appropriate box(es): [ x] Sepsis due to: ____pneumonia [ ] Severe sepsis with acute organ dysfunction of: [ ] Septic Shock [ ] Localized infection without sepsis [ x ] Other diagnosis _had cardiogenic shock [ ] Unable to determine In addition, please specify: Present on Admission (POA): [ x ] Yes [ ] No [ ] Unable to determine For continuity of documentation, please document condition throughout progress notes and discharge summary. Thank You. CLINICAL INDICATORS - SIGNS / SYMPTOMS / LABS ER RECORD 04/13: BP 78/54 Pulse 131, Resp. 27 Temp 98.9 Per [facility] records: CXR shows multilobar PNA, lactate of 4.9 Appears to have sepsis and tachycardia with a fib and rvr. DX: Septic Shock. Afib RVR, Indeterminate troponin, Multilobar PNA H&P 04/13: Chest x-ray reveals a right-sided pneumonia, White cell count 14.7 lactic acid 4.9 Hypotension, possibly iatrogenic induced Pneumonia, right upper lobe Sepsis syndrome PN 04/25: Pneumonia due to unspecified organism. Bilateral Acute respiratory failure with hypoxia. Secondary to CHF and pneumonia. Cardiogenic Shock Resolved RISKS: H&P 04/13: Hx chronic back pain and CAD. PAD. HTN, COPD. PULMONOLOGY 04/13: Reported hx of rheumatoid arthritis. Pneumonia, community acquired. Significant opiod use. TREATMENT: ORDER 04/13-04/25: Levaquin 750 mg IV ORDER 04/15-04/21: Resp: Vent Adult continuous Thank you, Wendy (This form is maintained as a part of the permanent medical record) 2014 [employer]. All Rights Reserved Wendy Toscano RN, BSN [email or web address] Office: [phone] [facility]
--- NOTE | 2018-04-26 14:33 | PDOC.PN ---
- Subjective Encounter Start Date: 04/26/18 Encounter Start Time: 14:20 Subjective: no sob, feels better - Objective Resuscitation Status - Order Detail: 04/13/18 11:49 Resuscitation Status Routine Resuscitation Status: FULL: Full Resuscitation MAR Reviewed: Yes Vital Signs & Weight: Vital Signs (12 hours) Temp Pulse Resp BP Pulse Ox 04/26/18 14:05 80 16 95 04/26/18 08:21 82 16 92 L 04/26/18 08:19 92 L 04/26/18 08:05 97.8 F 80 20 166/71 H 92 L 04/26/18 08:00 92 L Weight Admit Weight 171 lb 4.787 oz Weight 165 lb 9 oz Most Recent Monitor Data Heart Rate from ECG 79 NIBP 134/60 NIBP BP-Mean 84 Respiration from ECG 18 SpO2 96 I&O: 04/25/18 04/26/18 04/27/18 06:59 06:59 06:59 Intake Total 1090 1080 Output Total 1575 1200 Balance -485 -120 Result Diagrams: 04/25/18 06:01 04/24/18 05:00 Phys Exam - Physical Examination HEENT: PERRLA, moist MMs Neck: no JVD, supple Respiratory: no wheezing, no rales rhonchi+ Cardiovascular: RRR, no significant murmur Gastrointestinal: soft, non-tender, positive bowel sounds Musculoskeletal: no edema, pulses present Neurological: non-focal, moves all 4 limbs Psychiatric: A&O x 3 Dx/Plan (1) PNA (pneumonia) Code(s): J18.9 - PNEUMONIA, UNSPECIFIED ORGANISM Status: Acute Qualifiers: Pneumonia type: due to unspecified organism Laterality: bilateral (2) Acute respiratory failure with hypoxia Code(s): J96.01 - ACUTE RESPIRATORY FAILURE WITH HYPOXIA Status: Acute Comment: Followed by [facility]. extubated. Secondary to CHF and pneumonia. (3) Acute systolic heart failure Code(s): I50.21 - ACUTE SYSTOLIC (CONGESTIVE) HEART FAILURE Status: Acute Comment: initial EF 20-25% on 04/13, repeat echo 04/21 shows ef of 50% (4) Atrial fibrillation with rapid ventricular response Code(s): I48.91 - UNSPECIFIED ATRIAL FIBRILLATION Status: Acute Comment: rate controlled (5) CAD (coronary artery disease) Code(s): I25.10 - ATHSCL HEART DISEASE OF [place] CORONARY ARTERY W/O ANG PCTRS Status: Acute Qualifiers: Coronary Disease-Associated Artery/Lesion type: [place] artery [place] vs. transplanted heart: [place] heart Associated angina: without angina Qualified Code(s): I25.10 - Atherosclerotic heart disease of [place] coronary artery without angina pectoris Comment: Hx of ID with evidence of ischemic cardiomyopathy. (6) Cardiogenic shock Code(s): R57.0 - CARDIOGENIC SHOCK Status: Resolved Comment: Off pressors and maintaining better BP. (7) HTN (hypertension) Code(s): I10 - ESSENTIAL (PRIMARY) HYPERTENSION Status: Chronic Qualifiers: Hypertension type: essential hypertension Qualified Code(s): I10 - Essential (primary) hypertension - Plan is on room air, ambulating around 35ft with rw -: get sob/tired, still recovering -: continue asp, plavix, coreg, amiodarone, cozaar, lasix -: prednisone, nebs -: dc plan in 24hrs if stable, she wants to do outpt rehab in [place] (home) * . Review of Systems - Medications/Allergies Allergies/Adverse Reactions: Allergies Allergy/AdvReac Type Severity Reaction Status Date / Time clindamycin Allergy Verified 04/13/18 13:19 lisinopril Allergy Verified 04/13/18 13:19 methotrexate Allergy Verified 04/13/18 13:19 penicillin G Allergy Verified 04/13/18 13:19 Medications: Current Medications Acetaminophen (Tylenol) 650 mg PO Q4H PRN PRN Reason: Headache/Fever/Mild Pain (1-3) Last Admin: 04/19/18 23:50 Dose: 650 mg Albuterol/Ipratropium (Duoneb) 3 ml NEB [id number] [facility] Last Admin: 04/26/18 14:05 Dose: 3 ml Amiodarone HCl (Cordarone) 200 mg PO BID [facility] Last Admin: 04/26/18 08:09 Dose: 200 mg Lipase/Protease/Amylase ([place] [id number]) 1 cap FS .PER PROTOCOL PRN PRN Reason: TUBE OCCLUSION PROTOCOL Aspirin (Aspirin Chewable) 81 mg PO MWF@0900 [facility] Last Admin: 04/25/18 08:23 Dose: 81 mg Carvedilol (Coreg) 6.25 mg PO BID-[facility] Last Admin: 04/26/18 08:07 Dose: 6.25 mg Clopidogrel Bisulfate (Plavix) 75 mg PO DAILY [facility] Last Admin: 04/26/18 08:09 Dose: 75 mg Docusate Sodium (Colace) 100 mg PO BID [facility] Last Admin: 04/26/18 08:09 Dose: 100 mg Enoxaparin Sodium (Lovenox) 30 mg SC 0900 [facility] Last Admin: 04/26/18 08:09 Dose: 30 mg Fentanyl (Duragesic) 25 mcg TD Q3D@1300 [facility] Last Admin: 04/26/18 13:29 Dose: 25 mcg Furosemide (Lasix) 40 mg SLOW IVP DAILY [facility] Last Admin: 04/26/18 08:10 Dose: 40 mg Losartan Potassium (Cozaar) 50 mg PO DAILY [facility] Last Admin: 04/26/18 08:08 Dose: 50 mg Morphine Sulfate (Morphine) 4 mg SLOW IVP Q2H PRN PRN Reason: Congestion Discontinue Previous Narcotic Pain Medications And Benzodiazepines 1 each FS .ONE [facility] Stop: 05/15/18 16:49 Ondansetron HCl (Zofran) 4 mg IVP Q6H PRN PRN Reason: Nausea/Vomiting Polyethylene Glycol (Miralax) 17 gm PER TUBE DAILY [facility] Last Admin: 04/26/18 08:15 Dose: Not Given Potassium Chloride (K-Dur) 40 meq PO BID-[facility] Last Admin: 04/26/18 08:08 Dose: 40 meq Prednisone (Prednisone) 20 mg PO QAM-[facility] Last Admin: 04/26/18 08:07 Dose: 20 mg Rosuvastatin Calcium (Crestor) 20 mg PO DAILY [facility] Last Admin: 04/26/18 08:08 Dose: 20 mg Sertraline HCl (Zoloft) 50 mg PO DAILY [facility] Last Admin: 04/26/18 08:07 Dose: 50 mg Sodium Bicarbonate (Bicarbonate, Sodium) 650 mg PER TUBE .PER PROTOCOL PRN PRN Reason: ENTERAL TUBE OCCLUSION Sodium Chloride (Flush - Normal Saline) 10 ml IVF Q12HR [facility] Last Admin: 04/26/18 08:14 Dose: 10 ml Sodium Chloride (Flush - Normal Saline) 10 ml IVF PRN PRN PRN Reason: Saline Flush Last Admin: 04/23/18 12:14 Dose: 10 ml Sodium Chloride ([place] Nasal [place] 0.65%) 0 ml EA NARE Q1H PRN PRN Reason: Nasal Dryness Last Admin: 04/23/18 12:15 Dose: 2 spr Tramadol HCl (Ultram) 50 mg PO Q6HR [id number] Last Admin: 04/26/18 12:41 Dose: 50 mg
--- NOTE | 2018-04-26 16:45 | PRG ---
DATE OF SERVICE: 04/26/2018 SERVICE: Pulmonary Medicine. INTERVAL HISTORY: The patient is breathing fine. She does not have any complaints of shortness of breath or chest discomfort. She has increasing her functionality through time. Otherwise, there has been no interval change to her condition. She has been weaned off oxygen and is currently on room air. OBJECTIVE: VITAL SIGNS: Afebrile, pulse 80, blood pressure 166/71, respirations 16, and saturation 95% on room air. GENERAL: The patient is awake and alert, in no apparent distress. LUNGS: Excellent air entry. Extensive rhonchi present throughout bilateral lung [place]. Improves, but does not resolve with cough. Dependently, crackles persist. HEART: Normal rate and regular. ABDOMEN: Soft, nontender, and nondistended. Bowel sounds are positive. MUSCULOSKELETAL: No cyanosis or clubbing. There is no pitting in the bilateral lower extremities. NEUROLOGIC: Grossly nonfocal. LABORATORY DATA: WBC 12.2, hemoglobin 8.9, and platelets 445,000. ASSESSMENT: 1. Acute hypoxic respiratory failure, resolved. 2. Chronic diastolic heart failure. 3. Mitral regurgitation (functional ranging from mild to severe based on blood pressure). 4. Heavy dependence on narcotics and benzodiazepines, improving. DISCUSSION AND PLAN: The patient does not feel strong enough to go home today. I talked to her about whether or not we need to pursue long-term options, but she declined suggesting that in 24 to 48 hours, she will likely feel strong enough to go home safely. At this point, we will continue supportive care. Pulmonary will continue to follow while she remains in-house. 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 Job ID: [id number]
[2018-04-27] MEDS: traMADol HCl 50 MG TAB PO SCH ×3 (00:32→12:36)
[2018-04-27 05:23] LABS: Anion Gap 15 mmol/L (10-20); BUN (Urea Nitrogen) 11 mg/dL (9.8-20.1); Calc. Creatinine Clearance 90 mL/min (70-130); Calcium 8.6 mg/dL (7.8-10.44); Carbon Dioxide 25 mmol/L (23-31); Chloride 96 mmol/L (98-107); Estimated GFR-MDRD 83; Glucose 86 mg/dL (80-115); Potassium 4.9 mmol/L (3.5-5.1); Sodium 131 mmol/L (136-145)
[2018-04-27] MEDS ORDERED: Furosemide 40 MG TAB PO SCH (07:30)
[2018-04-27] MEDS ORDERED: Carvedilol 6.25 MG TAB PO SCH (08:00)
[2018-04-27] MEDS ORDERED: Losartan 25 MG TAB PO SCH (09:00)
[2018-04-27 09:09] VITALS: TEMP 98
[2018-04-27] MEDS: Potassium Chloride 20 MEQ TAB PO SCH (09:16)
[2018-04-27] MEDS: predniSONE 20 MG TAB PO SCH (09:16)
[2018-04-27] MEDS: Clopidogrel Bisulfate 75 MG TAB PO SCH (09:16)
[2018-04-27] MEDS: Rosuvastatin 20 MG TAB PO SCH (09:18)
[2018-04-27] MEDS: Amiodarone 200 MG TAB PO SCH (09:18)
[2018-04-27] MEDS: Enoxaparin Sodium 30 MG/0.3 ML SYRINGE SC SCH (09:18)
[2018-04-27] MEDS: Docusate 100 MG CAP PO SCH (09:19)
[2018-04-27 09:21] VITALS: BP 133/60
[2018-04-27] MEDS: Polyethylene Glycol 3350 17 GM Packet PER TUBE SCH (09:21)
--- NOTE | 2018-04-27 17:43 | PRG ---
DATE OF SERVICE: 04/27/2018 SUBJECTIVE: Ms. Self looks great. She has been walking in the [place]. She says her pain is reasonably controlled. She has a 25 mcg fentanyl patch on. She is taking tramadol 4 times a day. Her patch is good for two more days back to [place]. I have encouraged Ms. Self to try to get off the fentanyl once she gets home and try to stay off the opiates if she can. OBJECTIVE: LUNGS: Clear. HEART: Regular rhythm. ABDOMEN: Soft. IMPRESSION: Status post pneumonia with respiratory failure, clinically stable. I think it is safe for her to travel at this time. Job ID: [id number]
== END 2018-04-27 14:10 | disposition home or self-care (01) | DRG 870 ==
LOC: ERS 09:34 → CCU 13:59 → SURG A 04-19 15:47 → CCU 04-19 15:56 → ONC 04-23 15:18
PROVIDERS: ADMIT Internal Medicine; ATTEND Internal Medicine
PROC: 5A1955Z Respiratory Ventilation, Greater than 96 Consecutive Hours (ICD-10-PCS; principal; 2018-04-16)
PROC: 0BH18EZ Insertion of Endotracheal Airway into Trachea, Via Natural or Artificial Opening Endoscopic (ICD-10-PCS; 2018-04-16)
PROC: 3E0G76Z Introduction of Nutritional Substance into Upper GI, Via Natural or Artificial Opening (ICD-10-PCS; 2018-04-19)
DX: A41.9 Sepsis, unspecified organism (principal); J18.9 Pneumonia, unspecified organism; R65.21 Severe sepsis with septic shock; J96.01 Acute respiratory failure with hypoxia; I21.A1 Myocardial infarction type 2; I25.2 Old myocardial infarction; I10 Essential (primary) hypertension; Z95.820 Peripheral vascular angioplasty status with implants and grafts; Z79.82 Long term (current) use of aspirin; Z79.51 Long term (current) use of inhaled steroids; Z79.899 Other long term (current) drug therapy; Z88.1 Allergy status to other antibiotic agents; Z87.891 Personal history of nicotine dependence; I25.10 Atherosclerotic heart disease of native coronary artery without angina pectoris; J44.9 Chronic obstructive pulmonary disease, unspecified; I95.89 Other hypotension
CPT/HCPCS: 36556; 71045; 74176; 80048; 80162; 81003; 82533; 82550; 82553; 82805; 83690; 83735; 83880; 84100; 84443; 85014; 85018; 85025; 85049; 87086; 87389; 93005; 93010; 93306; 93798; 94002; 94003; 94640; 94660; 96365; 96366; 96367; G8978-GP-CK; G8979-GP-CI; J0282; J1100; J1160; J1650; J1720; J1940; J1956; J2060; J2250; J2270; J2274; J2704; J2920; J3010; J3370; J3475; J3480; J7050; J7070; J7506; J7620